=== PATIENT | female | born 1940 | race Caucasian/White ===

== ENCOUNTER 2017-02-17 16:18 | Emergency (ER) | payer MEDICARE, OTHER ==
--- NOTE | 2017-02-17 16:57 | EDM.PDOC ---
ED HPI NEURO - General Chief Complaint: Neurological Problem Stated Complaint: STROKE SYMPTOMS Time Seen by Provider: 02/17/17 16:18 Source of Information: Reports: Patient, Family (Daughter, [id number], son) , RN notes reviewed History Limitations: Reports: No limitations - History of Present Illness INITIAL COMMENTS - FREE TEXT/NARRATIVE: According to the patient's [id number], the patient was on the toilet at 15: 50. They have some sort of handles or grab bars, which the patient was holding onto in order not to fall. A family member helped the patient get up, however, she was having difficulty walking due to right lower extremity weakness. At 16: 12 she developed slurred speech. The patient's [id number] and daughter brought the patient immediately to the ED. The patient is right hand dominant. Initial VS 154/75 - 84 They relate that the patient underwent a AAA repair by (it appears) 2 endovascular grafts, per Dr. akins at [facility], approximately 8 weeks ago. The patient is not currently on a blood thinner. - Related Data Allergies/ADRs: Allergies Allergy/AdvReac Type Severity Reaction Status Date / Time No Known Allergies Allergy Verified 01/25/17 12:53 Home Meds: Home Meds Fluticasone/Salmeterol [Advair 250-50 Diskus] 1 each IH BID 01/05/17 [History] Levothyroxine 112 mcg PO DAILY 01/05/17 [History] Omeprazole 40 mg PO DAILY 01/05/17 [History] Tiotropium [Spiriva HandiHaler] 18 mcg INH BID 01/05/17 [History] Cetirizine [ZyrTEC] 10 mg PO DAILY 02/17/17 [History] Past Medical History Cardiovascular History: Reports: High cholesterol, Hypertension (untreated), Other (see below) (AAA) Respiratory History: Reports: COPD Gastrointestinal History: Reports: Other (see below) (Undiagnosed "stomach issues", including bloating) Genitourinary History: Reports: Urinary incontinence Musculoskeletal History: Reports: Arthritis Endocrine/Metabolic History: Reports: Hypothyroidism Oncologic (Cancer) History: Reports: Squamous cell carcinoma - Past Surgical History HEENT Surgical History: Reports: Tonsillectomy Cardiovascular Surgical History: Reports: AAA repair (2 endografts), Varicose GI Surgical History: Reports: Hernia repair/other Female Surgical History: Reports: Tubal ligation, Other (see below) (Bladder suspension) Social & Family History - Tobacco Use Smoking Status *Q: Former Smoker Years of Tobacco use: 50 Packs/Tins Daily: 1.5 Tobacco Use Comment: QUIT 11/19/16 - Caffeine Use Caffeine Use: Reports: None - Alcohol Use Alcohol Use History: Yes Alcohol Use Frequency: Socially - Recreational Drug Use Recreational Drug Use: No - Living Situation & Occupation Living situation: Reports: , alone Occupation: retired ED ROS GENERAL - Review of Systems Review Of Systems: See Below Constitutional: Reports: no symptoms HEENT: Reports: No symptoms Respiratory: Reports: No Symptoms Cardiovascular: Reports: No symptoms Endocrine: Reports: no symptoms GI/Abdominal: Reports: No symptoms : Reports: no symptoms Musculoskeletal: Reports: no symptoms Skin: Reports: no symptoms Neurological: Reports: No Symptoms Psychiatric: Reports: No symptoms Hematologic/Lymphatic: Reports: no symptoms Immunologic: Reports: no symptoms ED EXAM, NEURO - Physical Exam Exam: See Below Exam Limited By: No limitations General Appearance: alert, WD/WN, no apparent distress Eye Exam: bilateral eye: EOMI, normal inspection Ears: normal external exam, hearing grossly normal Nose: normal inspection, no blood Throat/Mouth: Normal inspection, Normal lips, Normal voice, No airway compromise Head Exam: atraumatic, normocephalic Neck: normal inspection, full range of motion Respiratory/Chest: no respiratory distress, lungs clear, normal breath sounds, no accessory muscle use, chest non-tender Cardiovascular: normal peripheral pulses, regular rate, rhythm, no edema, no gallop, no JVD, no murmur, no rub GI/Abdominal: normal bowel sounds, soft, non tender, no organomegaly, no distention, no abnormal bruit, no mass Neurological: alert, oriented x 3, other (Right facial droop, including inability to blow out right cheek. Forehead is not involved. Slurred speech, but no word finding difficulty or apparent receptive aphasia. Mild weakness of the right upper extremity and right lower extremity, compared to the left. NIH stroke scale score of 4.) Extremities: normal inspection, normal range of motion, non-tender, no pedal edema, normal capillary refill Psychiatric: normal affect Skin Exam: Warm, Dry, Intact, Normal color, No rash EKG INTERPRETATION EKG Date: 02/17/17 Time: 16:28 Rhythm: NSR Rate (beats/min): 73 [place]: normal P-wave: present QRS: normal ST-T: normal QT: normal Course - Vital Signs Last Recorded V/S: Last Vital Signs Temp 36.1 C 02/17/17 16:33 Pulse 69 02/17/17 17:44 Resp 17 02/17/17 17:44 BP 143/64 H 02/17/17 17:44 Pulse Ox 93 L 02/17/17 17:44 - Orders/Labs/Meds Orders: Active Orders 24 hr Category Date Time Status EKG Documentation Completion [RC] STAT Care 02/17/17 16:30 Active Ang Head [CT] Stat Exams 02/17/17 17:16 Taken CTA Neck W & W/O Contrast [Ang Neck] [CT] Stat Exams 02/17/17 17:16 Taken Chest 1V Frontal [CR] Stat Exams 02/17/17 16:30 Taken Head wo Cont [CT] Stat Exams 02/17/17 16:26 Taken Sodium Chloride 0.9% [Normal Saline] 1,000 ml Med 02/17/17 18:00 Active IV ASDIRECTED Sodium Chloride 0.9% [Normal Saline] 100 ml Med 02/17/17 17:30 Active IV ASDIRECTED Sodium Chloride 0.9% [Saline Flush] Med 02/17/17 17:23 Active 10 ml FLUSH ONETIME PRN Medication Orders Sodium Chloride (Normal Saline) 100 mls @ 65 mls/hr IV ASDIRECTED FANNIE Last Admin: 02/17/17 17:50 Dose: 65 mls/hr Sodium Chloride (Normal Saline) 1,000 mls @ 75 mls/hr IV ASDIRECTED FANNIE Sodium Chloride (Saline Flush) 10 ml FLUSH ONETIME PRN PRN Reason: IV FLUSH Last Admin: 02/17/17 17:50 Dose: 10 ml Labs: Laboratory Tests 02/17/17 02/17/17 02/17/17 Range/Units 16:20 16:20 16:20 WBC 10.46 H (3.98-10.04) K/mm3 RBC 4.47 (3.98-5.22) M/mm3 Hgb 14.0 (11.2-15.7) gm/L Hct 42.9 (34.1-44.9) % MCV 96.0 H (79.4-94.8) fl MCH 31.3 (25.6-32.2) pg MCHC 32.6 (32.2-35.5) g/dl RDW Std Deviation 47.4 H (36.4-46.3) fL Plt Count 259 (182-369) K/mm3 MPV 9.8 (9.4-12.3) fl Neutrophils % (Manual) 69 H (40-60) % Band Neutrophils % 0 (0-10) % Lymphocytes % (Manual) 15 L (20-40) % Atypical Lymphs % 5 % Monocytes % (Manual) 8 (2-10) % Eosinophils % (Manual) 1 (0.7-5.8) % Basophils % (Manual) 2 H (0.1-1.2) Platelet Estimate Adequate Plt Morphology Comment Normal RBC Morph Comment Normal PT 9.7 (8.0-13.0) SECONDS INR 0.90 APTT 29 (22-36) SECONDS Sodium 137 (136-145) mEq/L Potassium 3.8 (3.5-5.1) mEq/L Chloride 101 (98-107) mEq/L Carbon Dioxide 25 (21-32) mEq/L Anion Gap 14.8 (5-15) BUN 10 (7-18) mg/dL Creatinine 0.9 (0.55-1.02) mg/dL Est Cr Clr Drug Dosing TNP Estimated GFR (MDRD) > 60 (>60) mL/min BUN/Creatinine Ratio 11.1 L (14-18) Glucose 108 (83-115) mg/dL Calcium 9.0 (8.5-10.1) mg/dL Magnesium 1.9 (1.8-2.4) mg/dl Total Bilirubin 0.3 (0.2-1.0) mg/dL AST 14 L (15-37) U/L ALT 25 (14-59) U/L Alkaline Phosphatase 104 (46-116) U/L Troponin I < 0.017 (0.00-0.056) ng/mL Total Protein 7.3 (6.4-8.2) g/dl Albumin 2.8 L (3.4-5.0) g/dl Globulin 4.5 gm/dL Albumin/Globulin Ratio 0.6 L (1-2) Meds: Medications Generic Name Dose Route Start Last Admin Trade Name Freq PRN Reason Stop Dose Admin Sodium Chloride 100 mls @ 65 mls/hr 02/17/17 17:30 02/17/17 17:50 Normal Saline IV 65 mls/hr ASDIRECTED FANNIE Administration Sodium Chloride 1,000 mls @ 75 mls/hr 02/17/17 18:00 Normal Saline IV ASDIRECTED FANNIE Sodium Chloride 10 ml 02/17/17 17:23 02/17/17 17:50 Saline Flush FLUSH 10 ml ONETIME PRN Administration IV FLUSH Discontinued Medications Generic Name Dose Route Start Last Admin Trade Name Freq PRN Reason Stop Dose Admin Alteplase, Recombinant Confirm 02/17/17 17:07 02/17/17 17:27 Activase Administered 02/17/17 17:08 Not Given Dose 100 mg .ROUTE .STK-MED ONE Alteplase, Recombinant 69.3 mg 02/17/17 17:18 02/17/17 17:15 Activase IV 02/17/17 17:19 69.3 mg .INFUSION STA Administration Iopamidol 100 ml 02/17/17 17:23 02/17/17 17:50 Isovue-370 (76%) IVPUSH 02/17/17 17:24 100 ml ONETIME ONE Administration - Radiology Interpretation Free Text/Narrative:: CT of the head without contrast is read by virtual radiology as: - No acute abnormality of the brain. MRI of the brain may be obtained if clinical concern for acute intracranial abnormality persists, and the brain has no contraindications. - Mild atrophy of the brain parenchyma. - Sinus disease as described in the report with findings suspicious for acute on chronic sinusitis. - Incidental/non-acute findings are described above. Portable chest radiograph does not appear to demonstrate any acute abnormalities. Cardiac silhouette is within normal limits. No pulmonary vascular congestion. No pleural effusions. No focal infiltrate. No pneumothorax. Hyperinflation and bilateral diaphragmatic flattening, consistent with COPD, noted. Formal read per the Radiologist pending. - Re-Assessments/Exams Free Text/Narrative Re-Assessment/Exam: 02/17/17 17:[address] Cheng, Neurologist at [facility], at 16:38. Provided the patient's platelets and blood glucose are within acceptable range, there don't appear to be any contraindications to any thrombolytic. The dosing would need to be based on actual weight, not conjecture. He wants the patient to be aware that there is a 7% chance that the thrombolytic could result in a bleed, resulting in worse neurologic outcome, or even . The above then discussed at length with the patient, her daughter, daughter-in- law, and son. Provided the platelets and blood glucose are within acceptable range, she would like to proceed with the thrombolytic. Platelets returned as 259K and blood glucose 108. Patient again confirmed that she wants to proceed with the thrombolytic. Consent signed. Dr. Cheng then called back at 17:06 to check on the patient. He is recommending a stat CT angiogram of the head and neck, both intracranial and extracranial. If the patient has a vascular abnormality, he absolutely needs the patient to be transferred to their facility. The patient does not have a vascular abnormality, we could entertain the idea of keeping the patient here in the ICU for 24 hours, no aspirin or heparin, normal saline at 75 mL per hour , and no eating until after a swallow evaluation, however, he is recommending that we transfer the patient to their facility no matter what the CT angiogram results are. This was discussed with the patient and her family, who are agreeable to transfer to [place]. 02/17/17 17:[address] Cheng's hardware sales assistant at 17:32. They have discussed the case with the Neurosurgeon Dr. Pressley, who would like the patient to be transferred no matter what the CTA results. 02/17/17 17:45 Since receiving the TNKase, the patient has no complaints. She still has difficulty blowing out her right cheek, however, her right upper and right lower extremity strength appears to have returned to normal. 02/17/17 18:26 Flight is here. The patient's right facial droop, including the ability to puff out her cheeks, has resolved. Departure - Departure Time of Disposition: 18:07 Disposition: DC/Tfer to Acute Hospital 02 Condition: fair Clinical Impression: Acute ischemic stroke Referrals: Daksha Quijano [Primary Care Provider] - - My Orders Last 24 Hours: My Active Orders 02/17/17 16:26 Head wo Cont [CT] Stat 02/17/17 16:30 EKG Documentation Completion [RC] STAT Chest 1V Frontal [CR] Stat 02/17/17 17:16 Ang Head [CT] Stat CTA Neck W & W/O Contrast [Ang Neck] [CT] Stat 02/17/17 17:23 Sodium Chloride 0.9% [Saline Flush] 10 ml FLUSH ONETIME PRN 02/17/17 17:30 Sodium Chloride 0.9% [Normal Saline] 100 ml IV ASDIRECTED 02/17/17 18:00 Sodium Chloride 0.9% [Normal Saline] 1,000 ml IV ASDIRECTED - Assessment/Plan Last 24 Hours: My Active Orders 02/17/17 16:26 Head wo Cont [CT] Stat 02/17/17 16:30 EKG Documentation Completion [RC] STAT Chest 1V Frontal [CR] Stat 02/17/17 17:16 Ang Head [CT] Stat CTA Neck W & W/O Contrast [Ang Neck] [CT] Stat 02/17/17 17:23 Sodium Chloride 0.9% [Saline Flush] 10 ml FLUSH ONETIME PRN 02/17/17 17:30 Sodium Chloride 0.9% [Normal Saline] 100 ml IV ASDIRECTED 02/17/17 18:00 Sodium Chloride 0.9% [Normal Saline] 1,000 ml IV ASDIRECTED
[2017-02-17] MEDS ORDERED: Iopamidol 755 Mg/ML 100 ML Bottle IVPUSH ONE (17:23)
[2017-02-17] MEDS ORDERED: Sodium Chloride 0.9% 10 ML Syringe FLUSH PRN (17:23)
[2017-02-17] MEDS ORDERED: Sodium Chloride 0.9% 100 ML IV SCH (17:30)
[2017-02-17] MEDS ORDERED: Sodium Chloride 0.9% 1,000 ML IV SCH (18:00)
[2017-02-17 18:31] VITALS: BP 137/80
--- NOTE | 2017-02-20 08:34 | CT ---
CT angiogram of neck Technique: Multiple axial sections were obtained to the neck. Intravenous contrast was utilized. Study performed as a CT angiogram protocol. Multiple MIP images were obtained. Findings: Atherosclerotic plaque noted within the thoracic aorta. Scattered atherosclerotic plaque noted within the carotid arteries. Mild stenosis noted within the proximal right internal carotid artery below 50%. No other focal areas of stenosis seen within the carotid arteries or vertebral arteries. Left vertebral artery is dominant over the right which is incidental. Small calcified nodule noted within the left thyroid gland which is felt to be incidental. Upper lung shows diffuse emphysematous change. Impression: 1. Less than 50% stenosis within the proximal right internal carotid artery. 2. Other incidental findings as described above. Diagnostic code #3 I agree with preliminary report issued by [facility] (preliminary report dictated on 02/17/17, 7:55 PM Central Time)
--- NOTE | 2017-02-20 08:34 | CT ---
CT angiogram of brain Technique: Multiple axial sections through the brain were obtained. Intravenous contrast given as a CT angiogram protocol. Multiple MIP images were obtained. Findings: Fluid is seen within both maxillary sinuses raising the possibility of sinusitis. Mild mucosal thickening noted within the ethmoid sinuses. Dominant left vertebral artery as compared to the right side which is felt to be normal in limits. Atherosclerotic change noted within the carotid siphon. No significant areas of stenosis noted within the intracranial arteries. No discrete aneurysm identified within the intracranial arteries. Impression: 1. Mild atheromatous change. 2. No focal areas of stenosis are seen intracranially. No discrete aneurysm is seen. 3. Possible sinusitis (air fluid levels within both maxillary sinuses). Diagnostic code #3 I agree with preliminary report issued by [facility] (preliminary report dictated on 02/17/17, 7:44 PM Central Time)
--- NOTE | 2017-02-20 08:34 | CT ---
Head CT Technique: Multiple axial sections through the brain were obtained. Intravenous contrast was not utilized. Comparison: No previous study. Findings: Ventricles along with basal cisterns and sulci over the convexities are mildly prominent. Slightly prominent cisterna magna is seen which is incidental. Minimal diminished density noted within the periventricular white matter which is compatible with small vessel ischemic demyelination change. No other abnormal parenchymal densities are seen. No evidence of intracranial hemorrhage. No midline shift or mass effect is seen. Air-fluid levels noted within the maxillary sinuses with mild mucosal thickening noted within the ethmoid sinuses. Impression: 1. Findings suspicious for sinusitis. 2. Mild senescent change. Nothing acute is identified on noncontrast head CT study. Diagnostic code #3
--- NOTE | 2017-02-20 08:34 | CR ---
Chest: Portable view of the chest was obtained. Comparison: Previous chest x-ray of 10/18/16. Heart size and mediastinum are normal. Lungs are clear but hyperinflated. Bony structures are grossly intact. Impression: 1. Emphysematous change. Nothing acute is seen on portable chest x-ray. Diagnostic code #2
== END 2017-02-17 18:30 ==
LOC: JD.ED 16:18
DX: I63.9 Cerebral infarction, unspecified (principal); E78.00 Pure hypercholesterolemia, unspecified; I10 Essential (primary) hypertension; J44.9 Chronic obstructive pulmonary disease, unspecified; M19.90 Unspecified osteoarthritis, unspecified site; E03.9 Hypothyroidism, unspecified; Z98.890 Other specified postprocedural states; Z79.899 Other long term (current) drug therapy; Z98.51 Tubal ligation status; Z87.891 Personal history of nicotine dependence
CPT/HCPCS: 36415; 70450; 70496; 70498; 71010; 80053; 83735; 84484; 85025; 85610; 85730; 93005; 96365; 96375; 99285; J2997; J7030; J7050; Q9967; 99213

== ENCOUNTER 2017-04-01 01:24 | Inpatient (IN) | payer MEDICARE, OTHER ==
[2017-04-01] MEDS ORDERED: Ondansetron 4 MG/2 ML SDV IVPUSH ONE (01:48)
[2017-04-01] MEDS ORDERED: Pantoprazole 40 MG Vial IVPUSH ONE (01:48)
[2017-04-01] MEDS ORDERED: Sodium Chloride 0.9% 1,000 ML IV SCH (02:00)
--- NOTE | 2017-04-01 02:26 | EDM.PDOC ---
ED HPI GI/ABDOMINAL - General Chief Complaint: Gastrointestinal Problem Stated Complaint: VOMITING BLOOD Time Seen by Provider: 04/01/17 01:38 Source of Information: Reports: Patient, Family History Limitations: Reports: No limitations - History of Present Illness INITIAL COMMENTS - FREE TEXT/NARRATIVE: Is a 77-year-old female. Onset with nausea and vomiting this morning. She says when she started vomiting she started having tightness and a fullness in the right upper quadrant. She has a history of GERD and which she started vomiting initially she said she was vomiting up a lot of acid. Then it seemed like the vomitus turned into some dark blood and then she called her son who lives next door and when he came to the house she was vomiting up some coffee grounds. She comes to the ER because of the nausea and vomiting and concern about vomiting blood. She apparently has a history of having done this once before and she came to the ER was given a shot and sent home. She does take Prilosec on a daily basis for her GERD. She denies any history of gallbladder problems. She's had no recent upper respiratory infections but she does have allergies to bother her at times. She's not having any significant abdominal pain at this time and her nausea has eased up considerably. She does have a history of AAA that was recently repaired. - Related Data Allergies/ADRs: Allergies Allergy/AdvReac Type Severity Reaction Status Date / Time No Known Allergies Allergy Verified 02/28/17 13:00 Home Meds: Home Meds Fluticasone/Salmeterol [Advair 250-50 Diskus] 1 each IH BID 01/05/17 [History] Levothyroxine 112 mcg PO DAILY 01/05/17 [History] Omeprazole 40 mg PO DAILY 01/05/17 [History] Tiotropium [Spiriva HandiHaler] 18 mcg INH BID 01/05/17 [History] Aspirin [[place] Aspirin] 81 mg PO DAILY 02/28/17 [History] Pravastatin [Pravachol] 20 mg PO DAILY 02/28/17 [History] Past Medical History Cardiovascular History: Reports: High cholesterol, Hypertension (untreated), Other (see below) (AAA) Respiratory History: Reports: COPD Gastrointestinal History: Reports: Other (see below) (Undiagnosed "stomach issues", including bloating) Genitourinary History: Reports: Urinary incontinence Musculoskeletal History: Reports: Arthritis Endocrine/Metabolic History: Reports: Hypothyroidism Oncologic (Cancer) History: Reports: Squamous cell carcinoma - Past Surgical History HEENT Surgical History: Reports: Tonsillectomy Cardiovascular Surgical History: Reports: AAA repair (2 endografts), Varicose GI Surgical History: Reports: Hernia repair/other Female Surgical History: Reports: Tubal ligation, Other (see below) (Bladder suspension) Social & Family History - Tobacco Use Smoking Status *Q: Former Smoker Years of Tobacco use: 50 Packs/Tins Daily: 1.5 - Caffeine Use Caffeine Use: Reports: None - Recreational Drug Use Recreational Drug Use: No - Living Situation & Occupation Living situation: Reports: , alone Occupation: retired ED ROS GENERAL - Review of Systems Review Of Systems: See Below Constitutional: Denies: fever, chills HEENT: Reports: No symptoms Respiratory: Denies: Shortness of Breath, Cough Cardiovascular: Denies: Chest pain GI/Abdominal: Reports: Abdominal pain, Hematemesis, Nausea, Vomiting : Reports: no symptoms Musculoskeletal: Reports: no symptoms Skin: Reports: no symptoms Neurological: Reports: No Symptoms Psychiatric: Reports: Anxiety Hematologic/Lymphatic: Reports: no symptoms ED EXAM, GI/ABD - Physical Exam Exam: See Below Exam Limited By: No limitations General Appearance: alert, WD/WN, mild distress Ears: normal external exam Nose: normal inspection Throat/Mouth: Normal inspection, Normal oropharynx, No airway compromise Head: normocephalic Neck: supple Respiratory/Chest: no respiratory distress, lungs clear, normal breath sounds Cardiovascular: regular rate, rhythm, no murmur GI/Abdominal: soft, other (She is tender in the epigastric and right upper quadrant and a suggestion of a positive Turpin sign, left upper quadrant and lower abdomen are nontender on palpation, bowel sounds are hypoactive, there is no distention there is no guarding there is no rebound noted) Back Exam: full range of motion Extremities: normal inspection Neurological: alert, oriented Psychiatric: anxious Skin Exam: Warm, Dry Course - Vital Signs Last Recorded V/S: Last Vital Signs Temp 97.6 F 04/01/17 01:28 Pulse 72 04/01/17 01:28 Resp 16 04/01/17 01:28 BP 184/109 H 04/01/17 01:28 Pulse Ox 96 04/01/17 01:28 - Orders/Labs/Meds Orders: Active Orders 24 hr Category Date Time Status Abdomen Ltd [US] Stat Exams 04/01/17 01:49 Taken Sodium Chloride 0.9% [Normal Saline] 1,000 ml Med 04/01/17 02:00 Active IV ASDIRECTED Medication Orders Sodium Chloride (Normal Saline) 1,000 mls @ 500 mls/hr IV ASDIRECTED FANNIE Last Admin: 04/01/17 02:04 Dose: 500 mls/hr Labs: Laboratory Tests 04/01/17 04/01/17 Range/Units 01:50 01:50 WBC 8.97 (3.98-10.04) K/mm3 RBC 4.37 (3.98-5.22) M/mm3 Hgb 13.7 (11.2-15.7) gm/L Hct 41.8 (34.1-44.9) % MCV 95.7 H (79.4-94.8) fl MCH 31.4 (25.6-32.2) pg MCHC 32.8 (32.2-35.5) g/dl RDW Std Deviation 47.2 H (36.4-46.3) fL Plt Count 284 (182-369) K/mm3 MPV 9.3 L (9.4-12.3) fl Neut % (Auto) 44.1 (34.0-71.1) % Lymph % (Auto) 43.4 (19.3-51.7) % [place] % (Auto) 8.4 (4.7-12.5) % Eos % (Auto) 3.6 (0.7-5.8) Baso % (Auto) 0.3 (0.1-1.2) % Neut # (Auto) 3.96 (1.56-6.13) K/mm3 Lymph # (Auto) 3.89 H (1.18-3.74) K/mm3 [place] # (Auto) 0.75 H (0.24-0.36) K/mm3 Eos # (Auto) 0.32 (0.04-0.36) K/mm3 Baso # (Auto) 0.03 (0.01-0.08) K/mm3 Sodium 138 (136-145) mEq/L Potassium 3.4 L (3.5-5.1) mEq/L Chloride 102 (98-107) mEq/L Carbon Dioxide 28 (21-32) mEq/L Anion Gap 11.4 (5-15) BUN 19 H (7-18) mg/dL Creatinine 0.9 (0.55-1.02) mg/dL Est Cr Clr Drug Dosing 52.81 mL/min Estimated GFR (MDRD) > 60 (>60) mL/min BUN/Creatinine Ratio 21.1 H (14-18) Glucose 148 H (83-115) mg/dL Calcium 9.2 (8.5-10.1) mg/dL Total Bilirubin 0.3 (0.2-1.0) mg/dL AST 18 (15-37) U/L ALT 19 (14-59) U/L Alkaline Phosphatase 90 (46-116) U/L Total Protein 7.0 (6.4-8.2) g/dl Albumin 2.7 L (3.4-5.0) g/dl Globulin 4.3 gm/dL Albumin/Globulin Ratio 0.6 L (1-2) Lipase 136 (73-393) U/L Meds: Medications Generic Name Dose Route Start Last Admin Trade Name Freq PRN Reason Stop Dose Admin Sodium Chloride 1,000 mls @ 500 mls/hr 04/01/17 02:00 04/01/17 02:04 Normal Saline IV 500 mls/hr ASDIRECTED FANNIE Administration Discontinued Medications Generic Name Dose Route Start Last Admin Trade Name Freq PRN Reason Stop Dose Admin Ondansetron HCl 4 mg 04/01/17 01:48 04/01/17 02:04 Zofran IVPUSH 04/01/17 01:49 4 mg ONETIME ONE Administration Pantoprazole Sodium 40 mg 04/01/17 01:48 04/01/17 02:04 Protonix Iv IVPUSH 04/01/17 01:49 40 mg ONETIME ONE Administration - Radiology Interpretation Free Text/Narrative:: Ultrasound shows gall stones the largest being 1.4 cm in size with a positive Turpin's sign suspected mild gallbladder wall thickening and edema suggesting early acute cholecystitis - Re-Assessments/Exams Free Text/Narrative Re-Assessment/Exam: 04/01/17 02:53 We Gastroccult her coffee grounds and they were positive for blood 04/01/17 03:44 I spoke to the patient and her son regarding the test results and the ultrasound the port. Concern that she is vomiting up blood and has an upper GI bleed plus she has the complication of gallstones and possible developing acute cholecystitis. I spoke to Dr. Turcios regarding the patient and he felt like she needs to be observed in the hospital and he will consult on her in the morning. I did speak to Dr. Polo she is willing to put her in the hospital for evaluation and treatment. The patient is willing to stay in the hospital. Departure - Departure Time of Disposition: 03:46 Disposition: Admitted As Inpatient 66 Condition: fair Clinical Impression: Upper GI bleed, Cholelithiasis Additional Instructions: I spoke to Dr. Polo and she'll admit the patient for further evaluation and treatment, Dr. Turcios is agreed to consult in the a.m. regarding the patient ED Communication - ED Communication Date/Time Date: 04/01/17 Time Called: 03:49 - Discussed Case With (1) Person/s Notified (1): Yelena Polo (She will admit the patient) - My Orders Last 24 Hours: My Active Orders 04/01/17 01:49 Abdomen Ltd [US] Stat 04/01/17 02:00 Sodium Chloride 0.9% [Normal Saline] 1,000 ml IV ASDIRECTED - Assessment/Plan Last 24 Hours: My Active Orders 04/01/17 01:49 Abdomen Ltd [US] Stat 04/01/17 02:00 Sodium Chloride 0.9% [Normal Saline] 1,000 ml IV ASDIRECTED
[2017-04-01] MEDS ORDERED: Ondansetron 4 MG/2 ML SDV IVPUSH PRN (06:48)
[2017-04-01] MEDS ORDERED: cefOXitin 1 GM in Premix Bag 1 BAG IV ONE (07:00)
--- NOTE | 2017-04-01 08:38 | PCM.CONSN ---
- General Info Date of Service: 04/01/17 - Patient Data Vitals - most recent: Last Vital Signs Temp 97.5 F 04/01/17 07:48 Pulse 56 L 04/01/17 07:48 Resp 16 04/01/17 07:48 BP 146/70 H 04/01/17 07:48 Pulse Ox 94 L 04/01/17 07:48 Weight - most recent: 76.702 kg Lab Results last 24 hrs: Laboratory Results - last 24 hr 04/01/17 04/01/17 Range/Units 07:25 07:25 WBC 7.51 (3.98-10.04) K/mm3 RBC 4.25 (3.98-5.22) M/mm3 Hgb 13.1 (11.2-15.7) gm/L Hct 40.9 (34.1-44.9) % MCV 96.2 H (79.4-94.8) fl MCH 30.8 (25.6-32.2) pg MCHC 32.0 L (32.2-35.5) g/dl RDW Std Deviation 47.6 H (36.4-46.3) fL Plt Count 280 (182-369) K/mm3 MPV 9.3 L (9.4-12.3) fl Neut % (Auto) 42.1 (34.0-71.1) % Lymph % (Auto) 46.5 (19.3-51.7) % [place] % (Auto) 7.3 (4.7-12.5) % Eos % (Auto) 3.5 (0.7-5.8) Baso % (Auto) 0.5 (0.1-1.2) % Neut # (Auto) 3.16 (1.56-6.13) K/mm3 Lymph # (Auto) 3.49 (1.18-3.74) K/mm3 [place] # (Auto) 0.55 H (0.24-0.36) K/mm3 Eos # (Auto) 0.26 (0.04-0.36) K/mm3 Baso # (Auto) 0.04 (0.01-0.08) K/mm3 Sodium 145 (136-145) mEq/L Potassium 4.1 (3.5-5.1) mEq/L Chloride 110 H (98-107) mEq/L Carbon Dioxide 29 (21-32) mEq/L Anion Gap 10.1 (5-15) BUN 15 (7-18) mg/dL Creatinine 0.8 (0.55-1.02) mg/dL Est Cr Clr Drug Dosing 57.27 mL/min Estimated GFR (MDRD) > 60 (>60) mL/min BUN/Creatinine Ratio 18.8 H (14-18) Glucose 95 (83-115) mg/dL Calcium 8.6 (8.5-10.1) mg/dL Total Bilirubin 0.2 (0.2-1.0) mg/dL AST 14 L (15-37) U/L ALT 18 (14-59) U/L Alkaline Phosphatase 76 (46-116) U/L Total Protein 6.2 L (6.4-8.2) g/dl Albumin 2.3 L (3.4-5.0) g/dl Globulin 3.9 gm/dL Albumin/Globulin Ratio 0.6 L (1-2) Lipase 74 (73-393) U/L Med Orders - Current: Current Medications Sodium Chloride (Normal Saline) 1,000 mls @ 500 mls/hr IV ASDIRECTED [facility] Last Admin: 04/01/17 02:04 Dose: 500 mls/hr Sodium Chloride (Normal Saline) 1,000 mls @ 100 mls/hr IV ASDIRECTED [facility] Ondansetron HCl (Zofran) 4 mg IVPUSH Q6H PRN PRN Reason: Nausea Discontinued Medications Cefoxitin Sodium 1 gm/ Premix 50 mls @ 100 mls/hr IV ONETIME ONE Stop: 04/01/17 07:29 Last Admin: 04/01/17 07:35 Dose: 100 mls/hr Ondansetron HCl (Zofran) 4 mg IVPUSH ONETIME ONE Stop: 04/01/17 01:49 Last Admin: 04/01/17 02:04 Dose: 4 mg Pantoprazole Sodium (Protonix Iv) 40 mg IVPUSH ONETIME ONE Stop: 04/01/17 01:49 Last Admin: 04/01/17 02:04 Dose: 40 mg Consult PN Assessment/Plan Procedures: Procedures ASSAY OF LIPASE (11/14/16) ASSAY OF MAGNESIUM (02/17/17) ASSAY OF SERUM POTASSIUM (08/15/16) ASSAY OF TROPONIN QUANT (02/17/17) CHEST X-RAY 1 VIEW FRONTAL (02/17/17) CHEST X-RAY 2VW FRONTAL&LATL (10/18/16) COMPLETE CBC W/AUTO DIFF WBC (02/17/17) COMPREHEN METABOLIC PANEL (02/17/17) CT ABD & PELV W/CONTRAST (11/14/16) CT ANGIO ABDOM W/O & W/DYE (07/27/16) CT ANGIOGRAPHY HEAD (02/17/17) CT ANGIOGRAPHY NECK (02/17/17) CT HEAD/BRAIN W/O DYE (02/17/17) ELECTROCARDIOGRAM TRACING (02/17/17) EMERGENCY DEPT VISIT (02/17/17) EMERGENCY DEPT VISIT (11/14/16) HELICOBACTER PYLORI ANTIBODY (07/27/16) HYDRATE IV INFUSION ADD-ON (11/14/16) LIPID PANEL (08/04/16) OFFICE/OUTPATIENT VISIT EST (02/28/17) PROTHROMBIN TIME (02/17/17) ROUTINE VENIPUNCTURE (02/17/17) THER/PROPH/DIAG INJ IV PUSH (11/14/16) THER/PROPH/DIAG IV INF INIT (02/17/17) THROMBOPLASTIN TIME PARTIAL (02/17/17) TX/PRO/DX INJ NEW DRUG ADDON (02/17/17) URINALYSIS AUTO W/SCOPE (11/14/16) Problem List Initiated/Reviewed/Updated: Yes My Orders last 24 hours: My Active Orders 04/01/17 Breakfast NPO Now [Nothing per Oral Now Diet] [DIET] Plan: surgical consults dictated CIELO
--- NOTE | 2017-04-01 09:16 | PCM.HP ---
H&P History of Present Illness - General Date of Service: 04/01/17 Source of Information: Patient, Provider History Limitations: Reports: No limitations - History of Present Illness Initial Comments - Free Text/Narative: 77 year old female with a complaint of abdominal pain associated with nausea and vomiting. Denies any fever or chills, will be seen by general surgery for evaluation of cholelithiasis. She has been seen this morning and has been assessed by the hospitalist service for a planned procedure on 04/03/17. The patient denies a cardiac history, is a former smoker who stopped late last year. She has a 76 pack year history of tobacco. Apparently she participated in pulmonary rehab which was arranged by her arch support maker. Her last episode of bronchitis occurred roughly six weeks ago requiring steroids. She is able to perform activities consistent with 4 METS. The patient may proceed to surgery as scheduled on Monday, however will need to resume ASA for her endovascular AAA repair as soon as possible. Onset of Symptoms: Reports: sudden Symptom Onset Date: 03/31/17 Duration of Symptoms: Reports: Hour(s):, Getting worse Location: Reports: abdomen Quality: Reports: Same as previous episode Severity: moderate Improves with: Reports: Medication Worsens with: Reports: None Associated Symptoms: Reports: loss of appetite, weakness - Related Data Allergies/Adverse Reactions: Allergies Allergy/AdvReac Type Severity Reaction Status Date / Time No Known Allergies Allergy Verified 02/28/17 13:00 Home Medications: Home Meds Fluticasone/Salmeterol [Advair 250-50 Diskus] 1 each IH BID 01/05/17 [History] Levothyroxine 112 mcg PO DAILY 01/05/17 [History] Omeprazole 40 mg PO DAILY 01/05/17 [History] Tiotropium [Spiriva HandiHaler] 18 mcg INH BID 01/05/17 [History] Pravastatin [Pravachol] 20 mg PO DAILY 02/28/17 [History] Aspirin [[place] Aspirin] 81 mg PO DAILY #0 04/02/17 [Rx] Ondansetron [Zofran] 4 mg PO Q8H PRN #15 vial 04/02/17 [Rx] Past Medical History Cardiovascular History: Reports: High cholesterol, Hypertension Other Cardiovascular History: aaa Respiratory History: Reports: COPD Gastrointestinal History: Reports: Other (see below) Other Gastrointestinal History: 04/01/17 diagnosed with cholelithiasis and gallstones. bladder has been lifted. Genitourinary History: Reports: Urinary incontinence Musculoskeletal History: Reports: Arthritis Endocrine/Metabolic History: Reports: Hypothyroidism Oncologic (Cancer) History: Reports: Squamous cell carcinoma Dermatologic History: Reports: Other (see below) Other Dermatologic History: brown dry flaking skin to forearms that is thin - Past Surgical History HEENT Surgical History: Reports: Tonsillectomy Cardiovascular Surgical History: Reports: AAA repair, Varicose Respiratory Surgical History: Reports: None GI Surgical History: Reports: Hernia repair/other Female Surgical History: Reports: Tubal ligation Endocrine Surgical History: Reports: None Musculoskeletal Surgical History: Reports: None Dermatological Surgical History: Reports: None Social & Family History - Family History Family Medical History: Noncontributory - Tobacco Use Smoking Status *Q: Never Smoker Years of Tobacco use: 50 Packs/Tins Daily: 1.5 Used Tobacco, but Quit: Yes Month Tobacco Last Used: 11/19/16 Second Hand Smoke Exposure: No - Caffeine Use Caffeine Use: Reports: None - Recreational Drug Use Recreational Drug Use: No - Living Situation & Occupation Living situation: Reports: , alone Occupation: retired H&P Review of Systems - Review of Systems: Review Of Systems: See Below General: Reports: weakness HEENT: Reports: no symptoms Pulmonary: Reports: No Symptoms Cardiovascular: Reports: no symptoms Gastrointestinal: Reports: Abdominal pain, Decreased appetite Genitourinary: Reports: no symptoms Musculoskeletal: Reports: no symptoms Skin: Reports: no symptoms Psychiatric: Reports: no symptoms Neurological: Reports: No Symptoms Hematologic/Lymphatic: Reports: no symptoms Immunologic: Reports: no symptoms Exam - Exam Exam: See Below - Vital Signs Vital Signs: Last Vital Signs Temp 36.4 C 04/01/17 07:48 Pulse 56 L 04/01/17 07:48 Resp 16 04/01/17 07:48 BP 146/70 H 04/01/17 07:48 Pulse Ox 94 L 04/01/17 07:48 Weight: 76.702 kg - Exam Quality Assessment: DVT prophylaxis General: alert, oriented, cooperative HEENT: Conjunctiva clear, EACs clear, EOMI, Nares patent, Normal nasal septum, Pupils equal, Pupils reactive Neck: supple, trachea midline Lungs: Normal respiratory effort, Wheezing Cardiovascular: regular rate, regular rhythm Abdomen: normal bowel sounds, soft (Female) Exam: Deferred Rectal (Female) Exam: Deferred Back Exam: normal inspection Extremities: normal inspection Skin: warm Neurological: cranial nerves intact Neuro Extensive - Mental Status: alert, oriented x3, normal mood/affect, normal cognition, memory intact - Patient Data Lab Results last 24 hrs: Laboratory Results - last 24 hr 04/01/17 04/01/17 Range/Units 07:25 07:25 WBC 7.51 (3.98-10.04) K/mm3 RBC 4.25 (3.98-5.22) M/mm3 Hgb 13.1 (11.2-15.7) gm/L Hct 40.9 (34.1-44.9) % MCV 96.2 H (79.4-94.8) fl MCH 30.8 (25.6-32.2) pg MCHC 32.0 L (32.2-35.5) g/dl RDW Std Deviation 47.6 H (36.4-46.3) fL Plt Count 280 (182-369) K/mm3 MPV 9.3 L (9.4-12.3) fl Neut % (Auto) 42.1 (34.0-71.1) % Lymph % (Auto) 46.5 (19.3-51.7) % [place] % (Auto) 7.3 (4.7-12.5) % Eos % (Auto) 3.5 (0.7-5.8) Baso % (Auto) 0.5 (0.1-1.2) % Neut # (Auto) 3.16 (1.56-6.13) K/mm3 Lymph # (Auto) 3.49 (1.18-3.74) K/mm3 [place] # (Auto) 0.55 H (0.24-0.36) K/mm3 Eos # (Auto) 0.26 (0.04-0.36) K/mm3 Baso # (Auto) 0.04 (0.01-0.08) K/mm3 Sodium 145 (136-145) mEq/L Potassium 4.1 (3.5-5.1) mEq/L Chloride 110 H (98-107) mEq/L Carbon Dioxide 29 (21-32) mEq/L Anion Gap 10.1 (5-15) BUN 15 (7-18) mg/dL Creatinine 0.8 (0.55-1.02) mg/dL Est Cr Clr Drug Dosing 57.27 mL/min Estimated GFR (MDRD) > 60 (>60) mL/min BUN/Creatinine Ratio 18.8 H (14-18) Glucose 95 (83-115) mg/dL Calcium 8.6 (8.5-10.1) mg/dL Total Bilirubin 0.2 (0.2-1.0) mg/dL AST 14 L (15-37) U/L ALT 18 (14-59) U/L Alkaline Phosphatase 76 (46-116) U/L Total Protein 6.2 L (6.4-8.2) g/dl Albumin 2.3 L (3.4-5.0) g/dl Globulin 3.9 gm/dL Albumin/Globulin Ratio 0.6 L (1-2) Lipase 74 (73-393) U/L Result Diagrams: 04/02/17 04:33 04/02/17 04:33 *Q Meaningful Use (ADM) - VTE *Q VTE Criteria *Q: - Stroke *Q Stroke Criteria *Q: - AMI *Q AMI Criteria *Q: - Problem List (1) PVD (peripheral vascular disease) SNOMED Code(s): 319202023 ICD Code: I73.9 - PERIPHERAL VASCULAR DISEASE, UNSPECIFIED Status: Chronic (2) COPD (chronic obstructive pulmonary disease) SNOMED Code(s): 36191468 ICD Code: J44.9 - CHRONIC OBSTRUCTIVE PULMONARY DISEASE, UNSPECIFIED Status : Chronic (3) Cholelithiasis SNOMED Code(s): 173120737 ICD Code: K80.20 - CALCULUS OF GALLBLADDER W/O CHOLECYSTITIS W/O OBSTRUCTION Status: Acute Priority: High (4) GERD (gastroesophageal reflux disease) SNOMED Code(s): 254426765 ICD Code: K21.9 - GASTRO-ESOPHAGEAL REFLUX DISEASE WITHOUT ESOPHAGITIS Status: Acute Problem List Initiated/Reviewed/Updated: Yes Orders Last 24hrs: Active Orders 24 hr Category Date Time Status Admission Status [Patient Status] [ADT] Routine ADT 04/01/17 06:06 Active Notify Provider Consults [RC] ASDIRECTED Care 04/01/17 06:52 Active Up With Assistance [RC] ASDIRECTED Care 04/01/17 06:47 Active Up ad [place] [RC] ASDIRECTED Care 04/01/17 06:47 Active Consult to Physician [CONS] Routine Cons 04/01/17 06:49 Active NPO Now [Nothing per Oral Now Diet] [DIET] Diet 04/01/17 Breakfast Active Soft Diet [DIET] Diet 04/01/17 Lunch Active Ondansetron [Zofran] Med 04/01/17 06:48 Active 4 mg IVPUSH Q6H PRN Sodium Chloride 0.9% [Normal Saline] 1,000 ml Med 04/01/17 06:15 Active IV ASDIRECTED Code Status [Resuscitation Status] Routine Resus Stat 04/01/17 06:46 Ordered Medication Orders Sodium Chloride (Normal Saline) 1,000 mls @ 500 mls/hr IV ASDIRECTED [facility] Last Admin: 04/01/17 02:04 Dose: 500 mls/hr Sodium Chloride (Normal Saline) 1,000 mls @ 100 mls/hr IV ASDIRECTED [facility] Ondansetron HCl (Zofran) 4 mg IVPUSH Q6H PRN PRN Reason: Nausea Assessment/Plan Comment:: Impression: Cholelithiasis Lipid status is unknown, query lack of statin? Chronic HTN Hypothyroidism PVD Plan: GB removal Pain meds IVF ATB DVT/GI prophylaxis DC pending progression of diet.
[2017-04-01] MEDS: cefOXitin 1 GM in Premix Bag 1 BAG IV SCH ×2 (14:21→23:47)
[2017-04-01] MEDS: Sodium Chloride 0.9% 1,000 ML IV SCH (14:27)
[2017-04-01] MEDS: Fluticasone/Salmeterol 250-50 MCG Inhalation Powder 14/Diskus INH SCH (20:20)
[2017-04-01] MEDS: Tiotropium Inhaler 18 MCG Inhalation Powder Cap Kit of 5 INH SCH (20:20)
[2017-04-01] MEDS ORDERED: Simvastatin 10 MG Tab PO SCH (21:00)
[2017-04-01] MEDS: Pantoprazole 40 MG Vial IVPUSH SCH (21:12)
[2017-04-02] MEDS: Sodium Chloride 0.9% 1,000 ML IV SCH (00:45)
[2017-04-02] MEDS: cefOXitin 1 GM in Premix Bag 1 BAG IV SCH (06:33)
[2017-04-02] MEDS: Pantoprazole 40 MG Vial IVPUSH SCH (08:15)
[2017-04-02] MEDS: Fluticasone/Salmeterol 250-50 MCG Inhalation Powder 14/Diskus INH SCH (08:28)
[2017-04-02] MEDS: Tiotropium Inhaler 18 MCG Inhalation Powder Cap Kit of 5 INH SCH (08:28)
[2017-04-02] MEDS ORDERED: Non-Formulary Medication 1 Each (Omeprazole [Omeprazole] 40 MG) PO SCH (09:00)
[2017-04-02] MEDS ORDERED: Levothyroxine 112 MCG Tab PO SCH (09:00)
[2017-04-02] MEDS ORDERED: Aspirin 81 MG Tab.Chew PO SCH (09:00)
--- NOTE | 2017-04-02 09:57 | PCM.DCSUM1 ---
Discharge Summary - Hospital Course HPI Initial Comments: 77 year old female with abdominal pain associated with nausea and vomiting, has documented gallstones. The GB will be removed as an outpatient on 04/03/17. The patient was admitted as observation for symptom control, prior to DC, she had been seen by Dr Archer. His office will notify the patient of her planned procedure. She was watched for 24 hours, symptom management was provided. The patient was able to eat a heart healthy meal before DC without difficulty. WILL REQUIRE STATIN THERAPY. Primary DX Cholelithiasis Abdominal pain Condition Stable Diet As tolerated New Meds Zofran 4mg Q 8 H prn nausea/vomiting Will need statin therapy started, see recent Lipid Panel. Procedure Planned Cholecystectomy Follow up TBD after surgery - Discharge Data Discharge Date: 04/02/17 Discharge Disposition: Home, Self-Care 01 Condition: Good - Discharge Diagnosis/Problem(s) (1) PVD (peripheral vascular disease) SNOMED Code(s): 994062356 ICD Code: I73.9 - PERIPHERAL VASCULAR DISEASE, UNSPECIFIED Status: Chronic (2) COPD (chronic obstructive pulmonary disease) SNOMED Code(s): 74460480 ICD Code: J44.9 - CHRONIC OBSTRUCTIVE PULMONARY DISEASE, UNSPECIFIED Status : Chronic (3) Cholelithiasis SNOMED Code(s): 945794601 ICD Code: K80.20 - CALCULUS OF GALLBLADDER W/O CHOLECYSTITIS W/O OBSTRUCTION Status: Acute Priority: High (4) GERD (gastroesophageal reflux disease) SNOMED Code(s): 090837100 ICD Code: K21.9 - GASTRO-ESOPHAGEAL REFLUX DISEASE WITHOUT ESOPHAGITIS Status: Acute - Patient Summary/Data Consults: Consultations 04/01/17 06:49 Consult to Physician [CONS] Routine - Discharge Plan Prescriptions/Med Rec: Ondansetron [Zofran] 4 mg PO Q8H PRN #15 vial PRN Reason: Nausea/Vomiting Home Medications: Home Meds Fluticasone/Salmeterol [Advair 250-50 Diskus] 1 each IH BID 01/05/17 [History] Levothyroxine 112 mcg PO DAILY 01/05/17 [History] Omeprazole 40 mg PO DAILY 01/05/17 [History] Tiotropium [Spiriva HandiHaler] 18 mcg INH BID 01/05/17 [History] Pravastatin [Pravachol] 20 mg PO DAILY 02/28/17 [History] Aspirin [[place] Aspirin] 81 mg PO DAILY #0 04/02/17 [Rx] Ondansetron [Zofran] 4 mg PO Q8H PRN #15 vial 04/02/17 [Rx] Patient Handouts: Gastrointestinal Bleeding, Chronic Obstructive Pulmonary Disease, [id number] Referrals: Daksha Quijano [Physician] - (If you do not have a primary provider, please call the clinic ([phone]) here at the hospital to make a follow-up appointment with .) - General Info Date of Service: 04/01/17 - Patient Data Vitals - Most Recent: Last Vital Signs Temp 37.2 C 04/02/17 04:20 Pulse 59 L 04/02/17 04:20 Resp 18 04/02/17 04:20 BP 131/66 04/02/17 04:20 Pulse Ox 92 L 04/02/17 08:28 Weight - Most Recent: 77.111 kg I&O - Last 24 hours: Intake & Output 04/01/17 04/02/17 04/02/17 22:59 06:59 14:59 Intake Total 2410 3074 Output Total 500 1150 Balance 1910 1924 Lab Results - Last 24 hrs: Laboratory Results - last 24 hr 04/02/17 04/02/17 Range/Units 04:33 04:33 WBC 7.49 (3.98-10.04) K/mm3 RBC 3.90 L (3.98-5.22) M/mm3 Hgb 12.1 (11.2-15.7) gm/L Hct 38.2 (34.1-44.9) % MCV 97.9 H (79.4-94.8) fl MCH 31.0 (25.6-32.2) pg MCHC 31.7 L (32.2-35.5) g/dl RDW Std Deviation 48.5 H (36.4-46.3) fL Plt Count 264 (182-369) K/mm3 MPV 10.0 (9.4-12.3) fl Neut % (Auto) 46.4 (34.0-71.1) % Lymph % (Auto) 41.5 (19.3-51.7) % [place] % (Auto) 7.7 (4.7-12.5) % Eos % (Auto) 3.6 (0.7-5.8) Baso % (Auto) 0.7 (0.1-1.2) % Neut # (Auto) 3.47 (1.56-6.13) K/mm3 Lymph # (Auto) 3.11 (1.18-3.74) K/mm3 [place] # (Auto) 0.58 H (0.24-0.36) K/mm3 Eos # (Auto) 0.27 (0.04-0.36) K/mm3 Baso # (Auto) 0.05 (0.01-0.08) K/mm3 Sodium 142 (136-145) mEq/L Potassium 3.9 (3.5-5.1) mEq/L Chloride 108 H (98-107) mEq/L Carbon Dioxide 27 (21-32) mEq/L Anion Gap 10.9 (5-15) BUN 8 (7-18) mg/dL Creatinine 0.8 (0.55-1.02) mg/dL Est Cr Clr Drug Dosing 57.27 mL/min Estimated GFR (MDRD) > 60 (>60) mL/min BUN/Creatinine Ratio 10.0 L (14-18) Glucose 101 (83-115) mg/dL Calcium 8.3 L (8.5-10.1) mg/dL Magnesium 2.0 (1.8-2.4) mg/dl Triglycerides 186 H (<150) mg/dL Cholesterol 230 H (<200) mg/dL LDL Cholesterol Direct 143 H* (<100) mg/dL HDL Cholesterol 56.0 (40-59) mg/dL Med Orders - Current: Current Medications Aspirin (Aspirin) 81 mg PO DAILY [facility] Last Admin: 04/02/17 08:15 Dose: 81 mg Sodium Chloride (Normal Saline) 1,000 mls @ 100 mls/hr IV ASDIRECTED [facility] Last Admin: 04/02/17 00:45 Dose: 100 mls/hr Cefoxitin Sodium 1 gm/ Premix 50 mls @ 100 mls/hr IV Q8H [facility] Last Admin: 04/02/17 06:33 Dose: 100 mls/hr Levothyroxine Sodium (Levothyroxine) 112 mcg PO DAILY [facility] Last Admin: 04/02/17 08:15 Dose: 112 mcg Ondansetron HCl (Zofran) 4 mg IVPUSH Q6H PRN PRN Reason: Nausea Pantoprazole Sodium (Protonix Iv) 40 mg IVPUSH Q12H [facility] Last Admin: 04/02/17 08:15 Dose: 40 mg Fluticasone/Salmeterol (Advair Diskus 250-50) 1 puff INH BID [facility] Last Admin: 04/02/17 08:28 Dose: 1 puff Simvastatin (Zocor) 10 mg PO BEDTIME [facility] Last Admin: 04/01/17 21:12 Dose: 10 mg Tiotropium [place] (Spiriva Handihaler) 18 mcg INH DAILY [facility] Discontinued Medications Sodium Chloride (Normal Saline) 1,000 mls @ 125 mls/hr IV ASDIRECTED [facility] Last Admin: 04/01/17 02:04 Dose: 500 mls/hr Cefoxitin Sodium 1 gm/ Premix 50 mls @ 100 mls/hr IV ONETIME ONE Stop: 04/01/17 07:29 Last Admin: 04/01/17 07:35 Dose: 100 mls/hr Non-Formulary Medication (Omeprazole [Omeprazole]) 40 mg PO DAILY [facility] Ondansetron HCl (Zofran) 4 mg IVPUSH ONETIME ONE Stop: 04/01/17 01:49 Last Admin: 04/01/17 02:04 Dose: 4 mg Pantoprazole Sodium (Protonix Iv) 40 mg IVPUSH ONETIME ONE Stop: 04/01/17 01:49 Last Admin: 04/01/17 02:04 Dose: 40 mg Tiotropium [place] (Spiriva Handihaler) 18 mcg INH BID [facility] Last Admin: 04/02/17 08:28 Dose: 1 puff *Q Meaningful Use (DIS) - VTE *Q VTE Criteria *Q: - Stroke *Q Stroke Criteria *Q: - AMI *Q AMI Criteria *Q:
[2017-04-02 11:20] VITALS: BP 142/95
[2017-04-03] MEDS ORDERED: Tiotropium Inhaler 18 MCG Inhalation Powder Cap Kit of 5 INH SCH (09:00)
--- NOTE | 2017-04-03 10:34 | US ---
Limited abdominal ultrasound: Multiple real-time images were obtained of the upper right abdomen. Liver shows no focal parenchymal abnormality. Multiple gallstones seen within the gallbladder. Very slight gallbladder wall edema is noted. Common bile duct at the upper limits of normal at 8 mm. Minimal prominence of the collecting system of the right kidney is seen which is likely incidental. Right kidney is otherwise unremarkable. Pancreas is poorly seen due to bowel gas. Impression: 1. Gallstones. Minimal gallbladder wall edema. Common bile duct measures at the upper limits of normal at 8 mm. 2. Slightly prominent collecting system of the right kidney which is likely incidental unless patient has symptoms of right ureteral obstruction. 3. Nonvisualized pancreas. Diagnostic code #3 I agree with preliminary report issued by [email or web address] (report finalized on 04/01/17, 4:14 AM Central Time)
--- NOTE | 2017-05-08 08:44 | CONS ---
CONSULTING PHYSICIAN: Kartik Archer MD DATE OF CONSULTATION: 04/01/2017 ADDENDUM: This consultation was done on Monday on 04/01/2017 but posted by the hospital on 04/03/2017. The work was actually done on 04/01/2017. MMODAL /[id number]
== END 2017-04-02 12:05 | disposition home or self-care (01) | DRG 446 ==
LOC: JD.ED 01:24 → JD.MS 04:10
PROVIDERS: ADMIT Internal Medicine Cardiovascular Disease; ATTEND Internal Medicine Cardiovascular Disease
DX: K92.0 Hematemesis (principal); K80.20 Calculus of gallbladder without cholecystitis without obstruction; K21.9 Gastro-esophageal reflux disease without esophagitis; I73.9 Peripheral vascular disease, unspecified; J44.9 Chronic obstructive pulmonary disease, unspecified; I10 Essential (primary) hypertension; E03.9 Hypothyroidism, unspecified; M19.90 Unspecified osteoarthritis, unspecified site; E78.00 Pure hypercholesterolemia, unspecified; R32 Unspecified urinary incontinence; Z87.891 Personal history of nicotine dependence; Z79.899 Other long term (current) drug therapy
CPT/HCPCS: 36415; 76705; 80053; 83690; 85025; 96361; 96374; 96375; 99285; C9113; J2405; J7040; 80048; 80061; 83735; 94640; 94664; A9270; A9270-GY; J0694

== ENCOUNTER 2017-04-03 08:29 | Day surgery (SDC) | payer MEDICARE, OTHER ==
--- NOTE | 2017-04-03 07:41 | CONS ---
CONSULTING PHYSICIAN: Kartik Archer MD DATE OF CONSULTATION: 04/01/2017 HISTORY OF PRESENT ILLNESS: This is a 77-year-old female, who came into the emergency room by 1 o'clock this morning with nausea and vomiting. It started after eating eggs for breakfast, had a little fullness and pressure-like symptom in the right upper quadrant. She then began to vomit, this turn into coffee-ground material, and then came into the emergency room. She vomited in emergency room, no coffee-ground material however. Ultrasound was done showing stones in the gallbladder. The patient states that she has had about 4 episodes similar to this over the last 6 months. This was felt to be due to her reflux. She has heartburn, which is only incompletely managed with Prilosec. She has had an upper GI endoscopy done years ago. The patient, at the moment, is feeling comfortable, has no complaint of abdominal pain, nausea or vomiting is quite stable. PAST MEDICAL HISTORY: Elevated cholesterol, hypertension, history of abdominal aortic aneurysm treated with endografts earlier this year. She has gastroesophageal reflux. She is a chronic smoker, which she stopped recently in October, and has COPD. She has some urinary incontinence, treated hypothyroidism. Other operations consist of bladder suspension and hernia repair. SOCIAL HISTORY: The patient is a former smoker, does drink alcohol, Captshelly Gallegos. FAMILY HISTORY: No real heart disease in the family. She has a large family and does not remember all the elements of their disease. REVIEW OF SYSTEMS: No chest pain, shortness of breath, cough, hoarseness, wheezing, fainting, weakness, numbness, convulsions. She does have some nausea and vomiting, indigestion, which has resolved. She does have some shortness of breath when walking upstairs. MEDICATIONS: Per medication reconciliation form. Other medical problems that of history of small strokes last month. PHYSICAL EXAMINATION: VITAL SIGNS: Temperature 97, pulse 72, respirations 16, blood pressure 184/109. HEENT: Eyes, sclerae white. Extraocular muscle motion normal. Oral cavity, healthy mucous membrane with mouth and tongue. NECK: Supple. No nodes. No thyromegaly. Trachea midline. LUNGS: Decreased breath sounds throughout. HEART: Tones distant, but regular. ABDOMEN: Shows mild tenderness and guarding in right upper quadrant. EXTREMITIES: Upper and lower extremities, no angulation or deformities. NEUROLOGIC: No sensorineural deficit appreciated. Cranial nerves 3 through 12 intact. SKIN: Nice and warm. PSYCHIATRIC: Normal. ASSESSMENT: 1. Cholelithiasis, quite symptomatic. 2. History of chronic obstructive pulmonary disease, due to smoking. 3. History of coronary artery disease. 4. Hypertension. 5. History of abdominal aortic repair with some endografts just recently. 6. History of small strokes. PLAN: Plan is to discuss the procedure laparoscopic cholecystectomy, intraoperative cholangiogram with the patient risks and complications drawing out the procedure, and its risks for the patient and the family. We will ask Dr. Polo to preoperatively see, so we can clear her for surgery on Monday. JUNAID /[id number]
[~2017-04-03 08:29] MED LIST: Dexamethasone 4 MG/ML 5 ML MDV ONE; Lactated Ringers 1,000 ML IV SCH; Lidocaine 1% 4 ML ONE; Lidocaine 1%/Sod Bicarbonate in NS 8.4% 1 ML Syringe IV PRN; Ondansetron 4 MG/2 ML SDV ONE; Propofol 200 MG/20 ML SDV ONE; Sodium Chloride 0.9% 10 ML Syringe FLUSH PRN; fentaNYL 250 MCG/5 ML SDV ONE
--- NOTE | 2017-04-03 09:05 | PCM.PREANE ---
Preanesthetic Assessment - Anesthesia/Transfusion/Family Hx Anesthesia History: Prior Anesthesia Without Reaction Type of Anesthesia Reaction: Excessive Somnolence Family History of Anesthesia Reaction: No Transfusion History: No Prior Transfusion(s) - Review of Systems General: No Symptoms Pulmonary: Shortness of Breath (pt has COPD), Other Cardiovascular: Other (HLD- controlled with medications ) Gastrointestinal: Other (GERD) Neurological: Other (TIA 1 month ago- carotids evaluated and "not blocked enough to do surgery" is what she was told ) Other: Reports: Easy Bruising, Thyroid Problems (hypothyroidism controlled with medication ) - Physical Assessment NPO Status Date: 04/03/17 NPO Status Time: 00:00 Pulse: 56 O2 Sat by Pulse Oximetry: 95 Respiratory Rate: 16 Blood Pressure: 142/72 Temperature: 36.3 C Height: 1.7 m Weight: 77.111 kg ASA Class: 3 Mental Status: Alert & Oriented x3 Airway Class: Mallampati = 1 Dentition: Reports: Dentures (upper ) Thyro-Mental Finger Breadths: 3 Mouth Opening Finger Breadths: 3 ROM/Head Extension: Limited/Partial (due to dizziness) Lungs: Clear to auscultation, Normal respiratory effort, Decreased breath sounds Cardiovascular: Regular Rate, Regular Rhythm - Lab Values: 04-02-17 HGB 12.1 WBC 7.49 K+ 3.9 NA 142 Creatinine 0.8 Glucose 101 - Imaging/EKG Impressions: 02-17-17 SR 73 Prob LAE No ischemic changes - Allergies Allergies/Adverse Reactions: Allergies Allergy/AdvReac Type Severity Reaction Status Date / Time No Known Allergies Allergy Verified 02/28/17 13:00 - Blood Blood Available: No Product(s) Available: None - Anesthesia Plan Pre-Op Medication Ordered: None - Acknowledgements Anesthesia Type Planned: General Anesthesia Pt an Appropriate Candidate for the Planned Anesthesia: Yes Alternatives and Risks of Anesthesia Discussed w Pt/Guardian: Yes Pt/Guardian Understands and Agrees with Anesthesia Plan: Yes PreAnesthesia Questionnaire Cardiovascular History: Reports: Aneurysm (AAA repaired in 12-13), High cholesterol, Hypertension, Other (see below) Respiratory History: Reports: COPD Gastrointestinal History: Reports: GERD, Other (see below) Other Gastrointestinal History: 04/01/17 diagnosed with cholelithiasis and gallstones. bladder has been lifted. Genitourinary History: Reports: Urinary incontinence Musculoskeletal History: Reports: Arthritis Endocrine/Metabolic History: Reports: Hypothyroidism Oncologic (Cancer) History: Reports: Squamous cell carcinoma Dermatologic History: Reports: Other (see below) Other Dermatologic History: brown dry flaking skin to forearms that is thin - Past Surgical History HEENT Surgical History: Reports: Tonsillectomy Cardiovascular Surgical History: Reports: AAA repair, Varicose Respiratory Surgical History: Reports: None GI Surgical History: Reports: Hernia repair/other Female Surgical History: Reports: Tubal ligation Endocrine Surgical History: Reports: None Musculoskeletal Surgical History: Reports: None Dermatological Surgical History: Reports: None - SUBSTANCE USE Smoking Status *Q: Former Smoker (quit last , 76 pack year hx) Tobacco Use Within Last Twelve Months: No Second Hand Smoke Exposure: Yes Days Per Week of Alcohol Use: 7 Number of Drinks Per Day: 2 Total Drinks Per Week: 14 Date of Last Drink: 04/02/17 Time of Last Drink: 21:00 Recreational Drug Use History: No - HOME MEDS Home Medications: Home Meds Fluticasone/Salmeterol [Advair 250-50 Diskus] 1 each IH BID 01/05/17 [History] Levothyroxine 112 mcg PO DAILY 01/05/17 [History] Omeprazole 40 mg PO DAILY 01/05/17 [History] Tiotropium [Spiriva HandiHaler] 18 mcg INH BID 01/05/17 [History] Pravastatin [Pravachol] 20 mg PO DAILY 02/28/17 [History] Aspirin [[place] Aspirin] 81 mg PO DAILY #0 04/02/17 [Rx] Ondansetron [Zofran] 4 mg PO Q8H PRN #15 vial 04/02/17 [Rx] - CURRENT (IN HOUSE) MEDS Current Meds: Current Medications Albuterol (Proventil Neb Soln) 2.5 mg NEB ONETIME PRN PRN Reason: copd Stop: 04/03/17 18:00 Lactated Ringer's (Ringers, Lactated) 1,000 mls @ 125 mls/hr IV ASDIRECTED FANNIE Stop: 04/03/17 23:00 Lidocaine/Sodium Bicarbonate (Buffered Lidocaine 1% In Ns 8.4%) 0.25 ml IV ONETIME PRN PRN Reason: Prior to IV Start Stop: 04/03/17 18:00 Sodium Chloride (Saline Flush) 10 ml FLUSH ASDIRECTED PRN PRN Reason: Keep Vein Open Stop: 04/03/17 18:00 Discontinued Medications Dexamethasone (Dexamethasone) Confirm Administered Dose 20 mg .ROUTE .STK-MED ONE Stop: 04/03/17 08:12 Fentanyl (Sublimaze) Confirm Administered Dose 250 mcg .ROUTE .STK-MED ONE Stop: 04/03/17 08:11 Lidocaine HCl (Xylocaine-Mpf 1%) Confirm Administered Dose 4 mls @ as directed .ROUTE .STK-MED ONE Stop: 04/03/17 08:12 Ondansetron HCl (Zofran) Confirm Administered Dose 4 mg .ROUTE .STK-MED ONE Stop: 04/03/17 08:12 Propofol (Diprivan 20 Ml) Confirm Administered Dose 200 mg .ROUTE .STK-MED ONE Stop: 04/03/17 08:10
[2017-04-03] MEDS ORDERED: Iopamidol 612 MG/ML 50 ML SDV ONE (09:06)
[2017-04-03] MEDS ORDERED: Sodium Chloride 0.9% 50 ML SDV ONE (09:06)
[2017-04-03] MEDS ORDERED: Bupivacaine 0.5% 30 ML SDV ONE (09:06)
[2017-04-03] MEDS: Albuterol 0.083% 2.5 MG/3 ML Neb Soln NEB PRN ×2 (09:26→12:36)
[2017-04-03] MEDS ORDERED: Rocuronium 50 MG/5 ML Vial ONE (09:27)
[2017-04-03] MEDS ORDERED: ePHEDrine/Normal Saline 25 MG/5 ML Syringe ONE (09:27)
[2017-04-03] MEDS ORDERED: Lidocaine 1% 2 ML ONE (09:27)
[2017-04-03] MEDS ORDERED: HYDROmorphone 1 MG/ML Syringe ONE (09:28)
[2017-04-03] MEDS ORDERED: Lactated Ringers 1,000 ML ONE (09:29)
[2017-04-03] MEDS ORDERED: Ampicillin/Sulbactam Na 3 GM in Sodium Chloride 0.9% 100 ML IV ONE (09:45)
[2017-04-03] MEDS ORDERED: Phenylephrine 1 MG in Sodium Chloride 0.9% 10 ML IV SCH (10:45)
[2017-04-03] MEDS ORDERED: ePHEDrine 50 MG/ML SDV IVPUSH PRN (10:45)
[2017-04-03] MEDS ORDERED: Albuterol 0.083% 2.5 MG/3 ML Neb Soln NEB PRN (10:45)
[2017-04-03] MEDS ORDERED: Ondansetron 4 MG/2 ML SDV IVPUSH PRN (10:45)
[2017-04-03] MEDS ORDERED: Neostigmine Methylsulfate 10 MG/10 ML MDV ONE (11:06)
--- NOTE | 2017-04-03 11:23 | CR ---
Operative cholangiogram Technique: Multiple fluoroscopic spot views were obtained during operative cholangiogram exam. Filling defect is identified within the distal CBD presumably due to CBD calculus. No contrast is seen to extend into the duodenum. CHD and CBD are dilated. No additional filling defects are seen. Impression: 1. Findings which are felt compatible with calculus within the distal CBD causing obstruction and proximal biliary duct dilatation. Diagnostic code #3
[2017-04-03] MEDS ORDERED: fentaNYL 100 MCG/2 ML SDV IVPUSH PRN (11:45)
[2017-04-03] MEDS ORDERED: HYDROmorphone 0.5 MG/0.5 ML Syringe IVPUSH PRN (11:45)
[2017-04-03] MEDS ORDERED: Labetalol 100 MG/20 ML MDV ONE (11:52)
--- NOTE | 2017-04-03 12:05 | PCM.POSTAN ---
POST ANESTHESIA ASSESSMENT - MENTAL STATUS Mental Status: alert - VITAL SIGNS Pulse Rate: 63 SaO2: 100 Resp Rate: 9 Blood Pressure: 128/63 Temperature: 36.4 C - RESPIRATORY Respiratory Status: respiratory rate WNL, airway patent, O2 saturation stable, supplemental oxygen - CARDIOVASCULAR CV Status: pulse rate WNL, blood pressure stable - GASTROINTESTINAL GI Status: no symptoms - POST OP HYDRATION Hydration Status: adequate & stable
--- NOTE | 2017-04-03 12:06 | PCM.OPNOTE ---
- General Post-Op/Procedure Note Date of Surgery/Procedure: 04/03/17 Operative Procedure(s): lap norm with ioc Pre Op Diagnosis: chlelithiasis Post-Op Diagnosis: Same and choledochalithiasis Primary Surgeon: Kartik Archer EBL in mLs: 10 Complications: puncture wound to liver treated with surgacil Condition: Good
--- NOTE | 2017-04-03 12:18 | PCM48HPAN ---
Post Anesthesia Note - EVALUATION WITHIN 48HRS OF ANESTHETIC Vital Signs in Normal Range: Yes Patient Participated in Evaluation: Yes Respiratory Function Stable: Yes Airway Patent: Yes Cardiovascular Function Stable: Yes Hydration Status Stable: Yes Pain Control Satisfactory: Yes Nausea and Vomiting Control Satisfactory: Yes Mental Status Recovered: Yes - COMMENTS/OBSERVATIONS Free Text/Narrative:: Patient resting quietly, eyes closed, no c/o noted at this time.
[2017-04-03] MEDS ORDERED: Acetaminophen/HYDROcodone 325-5 MG Tab PO ONE (13:30)
[2017-04-03 15:24] VITALS: BP 118/65
--- NOTE | 2017-04-04 08:55 | OR ---
DATE OF OPERATION: 04/03/2017 SURGEON: Kartik Archer MD PREOPERATIVE DIAGNOSIS: Cholelithiasis, cholecystitis. POSTOPERATIVE DIAGNOSIS: Cholelithiasis, cholecystitis. OPERATION PERFORMED: Laparoscopic cholecystectomy, intraoperative cholangiogram. FINDINGS: Adhesions of omentum on the fundus of the gallbladder, small mulberry-type stones in the gallbladder. Common duct x-ray showed dilated duct with stones in the distal common duct without any flow into the duodenum. ESTIMATED BLOOD LOSS: About 10 mL. COMPLICATIONS: Small puncture wound to the undersurface of the liver caused by retraction of the liver treated with pressure and Surgicel. DESCRIPTION OF PROCEDURE: The patient was taken to the operating room, placed in a supine position, connected to monitoring equipment, given general anesthetic and intubated. SCDs were placed. Antibiotics were given. The abdomen was then prepped with DuraPrep draped off in a sterile fashion. An incision was made just above the umbilicus and carried down by sharp dissection to the fascia. Using a 5-mm Opti port, abdominal cavity was entered. Pneumoperitoneum was established and a 5-mm 30-degree camera was inserted, abdominal cavity scanned showing gallbladder in the right upper quadrant with adhesions. A 5 to 10-mm trocar placed in the epigastric position, and a 5-mm trocar was placed in right upper quadrant, right lateral quadrant. Fundus of gallbladder retracted in a cephalad position and placed in reverse Trendelenburg, with that tilted to the left. The omentum was then taken off the fundus of gallbladder with electrocautery and Diamond's pouch was dissected out. This was grasped and retracted caudally and Calot's triangle dissected out showing cystic duct, Diamond pouch, and secondary to the cystic duct dissected out and cystic artery. Clips were placed on the cystic artery proximal and distal and a clip was placed on the cystic duct. Cystic duct was opened and milked and no stones contained within. The cholangiocatheter was then placed and secured with a clip and a cholangiogram using a C-arm with contrast material diluted with equal parts of saline was then performed showing the above findings. The cystic duct clip was placed in the cystic duct. It was cut and 0 PDS Endoloop was placed on the cystic duct and secured. Cystic artery was cut and the gallbladder was then dissected from its attachments to the liver and placed in an Endobag and removed from the abdominal cavity and sent to pathology. Camera and pneumoperitoneum were established. The liver edge was lifted up and the area irrigated and at this time, a small puncture wound caused by the retractor what was incurred and this was treated with application of Surgicel to cease bleeding about 10 mL of the estimated blood loss. This was watched and no further oozing was noted. This completed the intraabdominal portion of the procedure. Pneumoperitoneum and ports were removed. The subumbilical and the skin of each port closed with interrupted subdermal 4-0 Dexon suture. Steri-Strips and sterile dressing placed. The patient tolerated the procedure and sent to recovery room in a stable condition. ANESTHESIA: MMODAL /[id number]
== END 2017-04-03 16:10 | disposition home or self-care (01) ==
LOC: JD.SDS 08:29
PROVIDERS: ATTEND Surgery
PROC: 0FT44ZZ Resection of Gallbladder, Percutaneous Endoscopic Approach (ICD-10-PCS; principal; 2017-04-03)
PROC: BF12YZZ Fluoroscopy of Gallbladder using Other Contrast (ICD-10-PCS; 2017-04-03)
DX: K80.10 Calculus of gallbladder with chronic cholecystitis without obstruction (principal); I10 Essential (primary) hypertension; E78.00 Pure hypercholesterolemia, unspecified; K21.9 Gastro-esophageal reflux disease without esophagitis; J44.9 Chronic obstructive pulmonary disease, unspecified; I25.10 Atherosclerotic heart disease of native coronary artery without angina pectoris; M19.90 Unspecified osteoarthritis, unspecified site; E03.9 Hypothyroidism, unspecified; Z87.891 Personal history of nicotine dependence; Z85.828 Personal history of other malignant neoplasm of skin; Z98.51 Tubal ligation status; Z98.890 Other specified postprocedural states; Z79.899 Other long term (current) drug therapy; Z79.82 Long term (current) use of aspirin
CPT/HCPCS: 47563; 76000; 88304; 94640; 94664; A9270; J0295; J1100; J1170; J2405; J2710; J3010; J7030; J7050; J7120; Q9967; 00790; J2704

== ENCOUNTER 2017-04-28 10:15 | Emergency (ER) | payer MEDICARE, OTHER ==
[2017-04-28] MEDS ORDERED: Sodium Chloride 0.9% 10 ML Syringe FLUSH PRN (10:20)
[2017-04-28] MEDS ORDERED: Sodium Chloride 0.9% 1,000 ML IV SCH (10:30)
[2017-04-28 12:39] VITALS: BP 135/92
--- NOTE | 2017-04-28 13:38 | EDM.PDOC ---
ED HPI GENERAL MEDICAL PROBLEM - General Chief Complaint: Neurological Problem Stated Complaint: [facility] Time Seen by Provider: 04/28/17 10:19 Source of Information: Reports: Patient, EMS, Family History Limitations: Reports: No Limitations - History of Present Illness INITIAL COMMENTS - FREE TEXT/NARRATIVE: The patient presents with sudden onset of dizziness. This all started this morning when she got up. When she would sit up or try to stand, she would get dizzy like she was off balance. She has a slight headache to the frontal region. She had some blurred vision with it but that is better. She has no chest pain or shortness of breath. She had some nausea but no vomiting. She has no abdominal pain. She has history of AAA repari with grafs and recently a stroke in January. She has no numbness or weakness with this. Onset: Sudden Duration: Minutes: Severity: Moderate Improves with: Reports: Immobilization Worsens with: Reports: Movement Context: Reports: Activity Associated Symptoms: Reports: Nausea/Vomiting. Denies: Chest Pain, Cough, Fever /Chills, Shortness of Breath Treatments COAT FITTER: Reports: IV/IO Headache Pain Score (Numeric/FACES): 5 - Related Data Allergies Allergy/AdvReac Type Severity Reaction Status Date / Time No Known Allergies Allergy Verified 02/28/17 13:00 Home Meds: Home Meds Fluticasone/Salmeterol [Advair 250-50 Diskus] 1 each IH BID 01/05/17 [History] Levothyroxine 112 mcg PO DAILY 01/05/17 [History] Omeprazole 40 mg PO DAILY 01/05/17 [History] Tiotropium [Spiriva HandiHaler] 18 mcg INH BID 01/05/17 [History] Pravastatin [Pravachol] 20 mg PO DAILY 02/28/17 [History] Aspirin [[place] Aspirin] 81 mg PO DAILY #0 04/02/17 [Rx] Ondansetron [Zofran] 4 mg PO Q8H PRN #15 vial 04/02/17 [Rx] Meclizine [Antivert] 25 mg PO Q6H PRN #20 tablet 04/28/17 [Rx] Past Medical History Cardiovascular History: Reports: Aneurysm, High Cholesterol, Hypertension, Other (See Below) Other Cardiovascular History: aaa Respiratory History: Reports: COPD Gastrointestinal History: Reports: GERD, Other (See Below) Other Gastrointestinal History: 04/01/17 diagnosed with cholelithiasis and gallstones. bladder has been lifted. Genitourinary History: Reports: Urinary Incontinence Musculoskeletal History: Reports: Arthritis Endocrine/Metabolic History: Reports: Hypothyroidism Oncologic (Cancer) History: Reports: Squamous Cell Carcinoma Dermatologic History: Reports: Other (See Below) Other Dermatologic History: brown dry flaking skin to forearms that is thin - Past Surgical History HEENT Surgical History: Reports: Tonsillectomy Respiratory Surgical History: Reports: None GI Surgical History: Reports: Hernia Repair/Other Female Surgical History: Reports: Tubal Ligation Endocrine Surgical History: Reports: None Musculoskeletal Surgical History: Reports: None Social & Family History - Family History Family Medical History: Noncontributory - Tobacco Use Smoking Status *Q: Former Smoker Years of Tobacco use: 50 Packs/Tins Daily: 1.5 Used Tobacco, but Quit: No Month Tobacco Last Used: 11/19/16 Second Hand Smoke Exposure: Yes - Caffeine Use Caffeine Use: Reports: None - Alcohol Use Days Per Week of Alcohol Use: 7 Number of Drinks Per Day: 2 Total Drinks Per Week: 14 - Recreational Drug Use Recreational Drug Use: No Drug Use in Last 12 Months: No - Living Situation & Occupation Living situation: Reports: , Alone Occupation: Retired ED ROS GENERAL - Review of Systems Review Of Systems: See Below Constitutional: Reports: No Symptoms HEENT: Reports: No Symptoms Respiratory: Reports: No Symptoms Cardiovascular: Reports: No Symptoms Endocrine: Reports: No Symptoms GI/Abdominal: Reports: Abdominal Pain, Nausea. Denies: Vomiting Musculoskeletal: Reports: No Symptoms Skin: Reports: No Symptoms ED EXAM, NEURO - Physical Exam Exam: See Below Exam Limited By: No Limitations General Appearance: Alert, No Apparent Distress Eye Exam: Bilateral Eye: EOMI Ears: Normal External Exam Nose: Normal Inspection Head Exam: Atraumatic, Normocephalic Neck: Normal Inspection Respiratory/Chest: No Respiratory Distress, Lungs Clear, Normal Breath Sounds Cardiovascular: Regular Rate, Rhythm, No Edema, No Murmur GI/Abdominal: Soft, Non-Tender, No Organomegaly, No Mass, Other Neurological: Alert, No Motor/Sensory Deficits, Oriented x 3 Back Exam: Normal Inspection Extremities: Normal Inspection EKG INTERPRETATION EKG Date: 04/28/17 Time: 10:26 Rhythm: other (sinus bradycardia) Rate (beats/min): 55 [place]: normal P-wave: present QRS: normal ST-T: normal QT: normal Course - Vital Signs Last Recorded V/S: Last Vital Signs Temp 97.9 F 04/28/17 10:15 Pulse 62 04/28/17 10:15 Resp 16 04/28/17 10:15 BP 135/92 H 04/28/17 10:15 Pulse Ox 94 L 04/28/17 10:15 - Orders/Labs/Meds Orders: Active Orders 24 hr Category Date Time Status Cardiac Monitoring [RC] . DIRECTED Care 04/28/17 10:20 Active EKG Documentation Completion [RC] STAT Care 04/28/17 10:20 Active Oxygen Therapy [RC] PRN Care 04/28/17 10:20 Active Peripheral IV Care [RC] . DIRECTED Care 04/28/17 10:20 Active Head wo Cont [CT] Stat Exams 04/28/17 10:21 Taken Sodium Chloride 0.9% [Normal Saline] 1,000 ml Med 04/28/17 10:30 Active IV ASDIRECTED Sodium Chloride 0.9% [Saline Flush] Med 04/28/17 10:20 Active 10 ml FLUSH ASDIRECTED PRN Peripheral IV Insertion Adult [OM.PC] Stat Oth 04/28/17 10:20 Ordered Medication Orders Sodium Chloride (Normal Saline) 1,000 mls @ 125 mls/hr IV ASDIRECTED FANNIE Last Admin: 04/28/17 11:00 Dose: 125 mls/hr Sodium Chloride (Saline Flush) 10 ml FLUSH ASDIRECTED PRN PRN Reason: Keep Vein Open Last Admin: 04/28/17 11:00 Dose: 10 ml Labs: Laboratory Tests 04/28/17 04/28/17 Range/Units 10:28 10:28 WBC 6.84 (3.98-10.04) K/mm3 RBC 4.51 (3.98-5.22) M/mm3 Hgb 13.9 (11.2-15.7) gm/L Hct 43.0 (34.1-44.9) % MCV 95.3 H (79.4-94.8) fl MCH 30.8 (25.6-32.2) pg MCHC 32.3 (32.2-35.5) g/dl RDW Std Deviation 47.2 H (36.4-46.3) fL Plt Count 284 (182-369) K/mm3 MPV 9.8 (9.4-12.3) fl Neut % (Auto) 48.4 (34.0-71.1) % Lymph % (Auto) 38.9 (19.3-51.7) % [place] % (Auto) 8.8 (4.7-12.5) % Eos % (Auto) 3.2 (0.7-5.8) Baso % (Auto) 0.6 (0.1-1.2) % Neut # (Auto) 3.31 (1.56-6.13) K/mm3 Lymph # (Auto) 2.66 (1.18-3.74) K/mm3 [place] # (Auto) 0.60 H (0.24-0.36) K/mm3 Eos # (Auto) 0.22 (0.04-0.36) K/mm3 Baso # (Auto) 0.04 (0.01-0.08) K/mm3 Sodium 139 (136-145) mEq/L Potassium 4.2 (3.5-5.1) mEq/L Chloride 104 (98-107) mEq/L Carbon Dioxide 27 (21-32) mEq/L Anion Gap 12.2 (5-15) BUN 14 (7-18) mg/dL Creatinine 0.8 (0.55-1.02) mg/dL Est Cr Clr Drug Dosing TNP Estimated GFR (MDRD) > 60 (>60) mL/min BUN/Creatinine Ratio 17.5 (14-18) Glucose 121 H (83-115) mg/dL Calcium 9.3 (8.5-10.1) mg/dL Total Bilirubin 0.3 (0.2-1.0) mg/dL AST 18 (15-37) U/L ALT 20 (14-59) U/L Alkaline Phosphatase 106 (46-116) U/L Troponin I < 0.017 (0.00-0.056) ng/mL Total Protein 7.0 (6.4-8.2) g/dl Albumin 2.6 L (3.4-5.0) g/dl Globulin 4.4 gm/dL Albumin/Globulin Ratio 0.6 L (1-2) Meds: Medications Generic Name Dose Route Start Last Admin Trade Name Linda PRN Reason Stop Dose Admin Sodium Chloride 1,000 mls @ 125 mls/hr 04/28/17 10:30 04/28/17 11:00 Normal Saline IV 125 mls/hr ASDIRECTED FANNIE Administration Sodium Chloride 10 ml 04/28/17 10:20 04/28/17 11:00 Saline Flush FLUSH 10 ml ASDIRECTED PRN Administration Keep Vein Open - Re-Assessments/Exams Free Text/Narrative Re-Assessment/Exam: 04/28/17 13:44 I ordered an IV saline lock, EKG, CT of her head and labs. Her CT shows nothing acute. She does have a retention cyst in her sinus. Her EKG looks good and her troponin is negative. Her CBC and CMP look good. Her troponin is negative. She feels better. I had my nurse feed her and get her up. She did good. I will discharge her home. I feel this is vertigo. Departure - Departure Time of Disposition: 13:50 Disposition: Home, Self-Care 01 Condition: good Clinical Impression: Dizziness, Vertigo - Discharge Information Prescriptions: Meclizine [Antivert] 25 mg PO Q6H PRN #20 tablet PRN Reason: Dizziness Referrals: Daksha Quijano [Primary Care Provider] - 1 Week Forms: ED Department Discharge Additional Instructions: Drink plenty of fluids. Take the antivert as needed for dizziness. Take the rest of you medication as prescribed. Follow up with Dr Sandhu in 1 week. Please return if you are worse. - My Orders Last 24 Hours: My Active Orders 04/28/17 10:20 Cardiac Monitoring [RC] . DIRECTED EKG Documentation Completion [RC] STAT Oxygen Therapy [RC] PRN Peripheral IV Care [RC] . DIRECTED Sodium Chloride 0.9% [Saline Flush] 10 ml FLUSH ASDIRECTED PRN Peripheral IV Insertion Adult [OM.PC] Stat 04/28/17 10:21 Head wo Cont [CT] Stat 04/28/17 10:30 Sodium Chloride 0.9% [Normal Saline] 1,000 ml IV ASDIRECTED - Assessment/Plan Last 24 Hours: My Active Orders 04/28/17 10:20 Cardiac Monitoring [RC] . DIRECTED EKG Documentation Completion [RC] STAT Oxygen Therapy [RC] PRN Peripheral IV Care [RC] . DIRECTED Sodium Chloride 0.9% [Saline Flush] 10 ml FLUSH ASDIRECTED PRN Peripheral IV Insertion Adult [OM.PC] Stat 04/28/17 10:21 Head wo Cont [CT] Stat 04/28/17 10:30 Sodium Chloride 0.9% [Normal Saline] 1,000 ml IV ASDIRECTED
--- NOTE | 2017-05-01 10:01 | CT ---
Head CT Technique: Multiple axial sections through the brain were obtained. Intravenous contrast was not utilized. Comparison: Previous CT angiogram study of the brain dated 02/17/17. Findings: Ventricles along the basal cisterns and sulci over convexities are mildly to moderately prominent. Prominent cisterna magna seen as a normal variant. Very minimal diminished density is noted within portions of the periventricular white matter compatible with small vessel ischemic demyelination change. No other abnormal parenchymal densities are seen. No evidence of intracranial hemorrhage. No midline shift or mass effect is seen. Bone window settings shows a rounded soft tissue density within the sphenoid sinus which is felt compatible with a retention cyst measuring approximately 1.0 cm. No acute calvarial abnormality is seen. Impression: 1. Minimal sinus finding. Other incidental findings. Nothing acute is appreciated on noncontrast head CT study. Diagnostic code #2 MTDD
== END 2017-04-28 14:15 | disposition home or self-care (01) ==
LOC: JD.ED 10:15
DX: R42 Dizziness and giddiness (principal); I10 Essential (primary) hypertension; E78.00 Pure hypercholesterolemia, unspecified; K21.9 Gastro-esophageal reflux disease without esophagitis; E03.9 Hypothyroidism, unspecified; Z98.890 Other specified postprocedural states; Z85.828 Personal history of other malignant neoplasm of skin; Z87.891 Personal history of nicotine dependence; Z79.82 Long term (current) use of aspirin; Z79.899 Other long term (current) drug therapy; Z98.51 Tubal ligation status
CPT/HCPCS: 36415; 70450; 80053; 84484; 85025; 93005; 96360; 99285; J7040; J7050; 99284

== ENCOUNTER 2017-10-14 23:19 | Emergency (ER) | payer MEDICARE, OTHER ==
[2017-10-14 23:27] VITALS: BP 161/91
--- NOTE | 2017-10-15 00:28 | EDM.PDOC ---
ED HPI GENERAL MEDICAL PROBLEM - General Chief Complaint: ENT Problem Stated Complaint: NOSE BLEED Time Seen by Provider: 10/14/17 23:26 Source of Information: Reports: Patient, Family, RN Notes Reviewed History Limitations: Reports: No Limitations - History of Present Illness INITIAL COMMENTS - FREE TEXT/NARRATIVE: The patient states that she developed left epistaxis around 23:00 while in bed. She denies any nasal trauma. She does not recall if she has ever had epistaxis before. She is on aspirin 81 mg daily, but no other anticoagulants. The patient's PCP is Dr. Quijano. - Related Data Allergies Allergy/AdvReac Type Severity Reaction Status Date / Time No Known Allergies Allergy Verified 02/28/17 13:00 Home Meds: Home Meds Fluticasone/Salmeterol [Advair 250-50 Diskus] 1 each IH BID 01/05/17 [History] Levothyroxine 112 mcg PO DAILY 01/05/17 [History] Tiotropium [Spiriva HandiHaler] 18 mcg INH BID 01/05/17 [History] Aspirin [[place] Aspirin] 81 mg PO DAILY #0 04/02/17 [Rx] Esomeprazole Magnesium [Nexium] 40 mg PO ACBREAKFAST 10/14/17 [History] Rosuvastatin Calcium 20 mg PO DAILY 10/14/17 [History] Past Medical History Cardiovascular History: Reports: Aneurysm (AAA), High Cholesterol Respiratory History: Reports: COPD Gastrointestinal History: Reports: GERD 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) Endocrine/Metabolic History: Reports: Hypothyroidism Hematologic History: Reports: Blood Transfusion(s) Oncologic (Cancer) History: Reports: Squamous Cell Carcinoma - Past Surgical History HEENT Surgical History: Reports: Tonsillectomy Cardiovascular Surgical History: Reports: AAA Repair (2 endografts), Varicose GI Surgical History: Reports: Cholecystectomy, Hernia Repair/Other Female Surgical History: Reports: Tubal Ligation Social & Family History - Family History Family Medical History: Noncontributory - Tobacco Use Smoking Status *Q: Former Smoker Years of Tobacco use: 50 Packs/Tins Daily: 1.5 Month Tobacco Last Used: Quit 11/19/2016 - Caffeine Use Caffeine Use: Reports: Coffee - Alcohol Use Alcohol Use History: Yes Days Per Week of Alcohol Use: 7 Number of Drinks Per Day: 1 Total Drinks Per Week: 7 - Recreational Drug Use Recreational Drug Use: No - Living Situation & Occupation Living situation: Reports: , Alone Occupation: Retired ED ROS ENT - Review of Systems Review Of Systems: See Below Constitutional: Reports: No Symptoms HEENT: Reports: No Symptoms Respiratory: Reports: No Symptoms Cardiovascular: Reports: No Symptoms Endocrine: Reports: No Symptoms GI/Abdominal: Reports: No Symptoms : Reports: No Symptoms Musculoskeletal: Reports: No Symptoms Skin: Reports: No Symptoms Neurological: Reports: No Symptoms Psychiatric: Reports: No Symptoms Hematologic/Lymphatic: Reports: No Symptoms Immunologic: Reports: No Symptoms ED EXAM, ENT - Physical Exam Exam: See Below Exam Limited By: No Limitations General Appearance: Alert, WD/WN, No Apparent Distress Eye Exam: Bilateral Eye: Normal Inspection Ears: Normal External Exam, Normal Canal, Hearing Grossly Normal, Normal TMs Nose: Normal Inspection, Other (Blood in left nare, but no active bleeding seen. ) Mouth/Throat: Normal Inspection, Normal Gums, Normal Lips, Normal Oropharynx ( no blood in posterior oropharynx), Normal Teeth Head: Atraumatic, Normocephalic Neck: Normal Inspection, Supple, Non-Tender, Full Range of Motion. No: Lymphadenopathy (L), Lymphadenopathy (R) Course - Vital Signs Last Recorded V/S: Last Vital Signs Temp 36.6 C 10/14/17 23:23 Pulse 87 10/14/17 23:23 Resp 18 10/14/17 23:23 BP 161/91 H 10/14/17 23:23 Pulse Ox 95 10/14/17 23:23 - Re-Assessments/Exams Free Text/Narrative Re-Assessment/Exam: 10/15/17 00:24 Upon my initial inspection, the patient's nose was not bleeding. I had her sit upright for about 10 or 15 minutes, and reexamined her nose, and it is still not bleeding. No obvious vessel was visible. I will have the nurse apply a thin smear of some petroleum jelly to the bilateral septae, then discharge her home. Departure - Departure Time of Disposition: 00:26 Disposition: Home, Self-Care 01 Condition: Good Clinical Impression: Left-sided epistaxis - Discharge Information Instructions: Nosebleed, [id number] Forms: ED Department Discharge Additional Instructions: You were seen in the emergency room for a left sided nosebleed. On examination, your nose had already stopped bleeding, and did not restart while in the ER. We recommend you apply a thin smear of petroleum jelly to both sides of your nasal septum, to keep the mucous membranes moist. Consider also purchasing a home humidifier. If your nose bleeds again, sit upright, tilt your head slightly forward, and pinch your nostrils tightly for 10-15 minutes. If this does not stop your nosebleed, return to the ER for further evaluation and treatment.
== END 2017-10-15 00:31 | disposition home or self-care (01) ==
LOC: JD.ED 23:19
DX: R04.0 Epistaxis (principal); K21.9 Gastro-esophageal reflux disease without esophagitis; E03.9 Hypothyroidism, unspecified; Z79.899 Other long term (current) drug therapy; Z87.891 Personal history of nicotine dependence
CPT/HCPCS: 99282; 99283

== ENCOUNTER 2018-02-15 07:40 | Day surgery (SDC) | payer MEDICARE, OTHER ==
[~2018-02-15 07:40] MED LIST changes: -Dexamethasone 4 MG/ML 5 ML MDV ONE; -Lactated Ringers 1,000 ML IV SCH; -Lidocaine 1% 4 ML ONE; +Lidocaine 1% PF 2 ML SDV INJECT SCH; -Lidocaine 1%/Sod Bicarbonate in NS 8.4% 1 ML Syringe IV PRN; -Ondansetron 4 MG/2 ML SDV ONE; -Propofol 200 MG/20 ML SDV ONE; -Sodium Chloride 0.9% 10 ML Syringe FLUSH PRN; -fentaNYL 250 MCG/5 ML SDV ONE
[2018-02-15] MEDS: Polymyxin B/Trimethoprim 10 ML Bottle EYELF SCH ×4 (07:59→10:00)
[2018-02-15] MEDS: Brimonidine 0.2% Ophth Soln 5 ML Bottle EYELF SCH ×4 (08:06→10:00)
[2018-02-15] MEDS: Phenylephrine 2.5% Ophth Soln 2 ML Bot EYELF SCH ×5 (08:11→09:40)
--- NOTE | 2018-02-15 08:17 | PCM.PREANE ---
Preanesthetic Assessment - Procedure Proposed Procedure: Left eye cataract extraction with implant - Anesthesia/Transfusion/Family Hx Anesthesia History: Prior Anesthesia Without Reaction Family History of Anesthesia Reaction: No Transfusion History: No Prior Transfusion(s) Intubation History: Unknown - Review of Systems General: No Symptoms Pulmonary: Cough, Other (bronchitis on prednisone, copd ) Cardiovascular: No Symptoms Gastrointestinal: No Symptoms Neurological: Other (stroke history, no deficits ) Other: Reports: Thyroid Problems (hypothyroid ) - Physical Assessment NPO Status Date: 02/14/18 NPO Status Time: 23:45 O2 Sat by Pulse Oximetry: 94 Respiratory Rate: 16 Vital Signs: Last Vital Signs Temp 36.6 C 02/15/18 07:45 Pulse 75 02/15/18 07:45 Resp 16 02/15/18 07:45 BP 148/75 H 02/15/18 07:45 Pulse Ox 94 L 02/15/18 07:45 Height: 1.7 m Weight: 78.018 kg ASA Class: 2 Mental Status: Alert & Oriented x3 Airway Class: Mallampati = 2 Dentition: Reports: Dentures (uppers only, wants to keep out for procedure ) Thyro-Mental Finger Breadths: 3 Mouth Opening Finger Breadths: 5 ROM/Head Extension: Full Lungs: Clear to Auscultation, Normal Respiratory Effort Cardiovascular: Regular Rate, Regular Rhythm - Allergies Allergies/Adverse Reactions: Allergies Allergy/AdvReac Type Severity Reaction Status Date / Time No Known Allergies Allergy Verified 02/14/18 15:17 - Blood Blood Available: No - Anesthesia Plan Pre-Op Medication Ordered: None - Acknowledgements Anesthesia Type Planned: MAC Pt an Appropriate Candidate for the Planned Anesthesia: Yes Alternatives and Risks of Anesthesia Discussed w Pt/Guardian: Yes Pt/Guardian Understands and Agrees with Anesthesia Plan: Yes PreAnesthesia Questionnaire Cardiovascular History: Reports: Aneurysm (AAA), High Cholesterol Other Cardiovascular History: aaa Respiratory History: Reports: COPD Gastrointestinal History: Reports: GERD Other Gastrointestinal History: 04/01/17 diagnosed with cholelithiasis and gallstones. bladder has been lifted. 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) Endocrine/Metabolic History: Reports: Hypothyroidism Hematologic History: Reports: Blood Transfusion(s) Oncologic (Cancer) History: Reports: Squamous Cell Carcinoma Dermatologic History: Reports: Other (See Below) Other Dermatologic History: brown dry flaking skin to forearms that is thin - Past Surgical History HEENT Surgical History: Reports: Tonsillectomy Cardiovascular Surgical History: Reports: AAA Repair (2 endografts), Varicose GI Surgical History: Reports: Cholecystectomy, Hernia Repair/Other Female Surgical History: Reports: Tubal Ligation - SUBSTANCE USE Smoking Status *Q: Former Smoker Tobacco Use Within Last Twelve Months: No Second Hand Smoke Exposure: Yes Days Per Week of Alcohol Use: 7 Number of Drinks Per Day: 1 Total Drinks Per Week: 7 Recreational Drug Use History: No - HOME MEDS Home Medications: Home Meds Fluticasone/Salmeterol [Advair 250-50 Diskus] 1 each IH BID 01/05/17 [History] Levothyroxine 112 mcg PO DAILY 01/05/17 [History] Tiotropium [Spiriva HandiHaler] 18 mcg INH BID 01/05/17 [History] Esomeprazole Magnesium [Nexium] 40 mg PO ACBREAKFAST 10/14/17 [History] Rosuvastatin Calcium 20 mg PO DAILY 10/14/17 [History] Acetaminophen [Tylenol] 650 mg PO Q4H PRN 02/14/18 [History] Albuterol [Proair HFA] 1 - 2 puff INH Q4H PRN 02/14/18 [History] Cetirizine [ZyrTEC] 10 mg PO ASDIRECTED 02/14/18 [History] Cholecalciferol (Vitamin D3) [Vitamin D3] 1,000 unit PO DAILY 02/14/18 [History] Docusate Sodium [Colace] 100 mg PO ASDIRECTED 02/14/18 [History] Fluticasone Propionate [Flonase] 1 spray NASBOTH ASDIRECTED 02/14/18 [History] Multivitamin [Poly-Vitamin] 1 tab PO DAILY 02/14/18 [History] Omeprazole 20 mg PO DAILY 02/14/18 [History] Propylene Glycol/PEG 400/Pf [Systane 0.3-0.4% Eye Drops] 1 drop EYEBOTH ASDIRECTED 02/14/18 [History] - CURRENT (IN HOUSE) MEDS Current Meds: Current Medications Brimonidine Tartrate (Alphagan 0.2% Ophth Soln) 0 ml EYELF ASDIRECTED FANNIE Stop: 02/15/18 18:00 Last Admin: 02/15/18 08:06 Dose: 1 drop Cefuroxime Sodium (Zinacef) 0 mg EYELF ASDIRECTED FANNIE Stop: 02/15/18 18:00 Lidocaine HCl (Xylocaine-Mpf 1%) 10 ml INJECT ASDIRECTED FANNIE Stop: 02/15/18 18:00 Phenylephrine HCl (Toni-Synephrine 2.5% Ophth Soln) 0 ml EYELF ASDIRECTED FANNIE Stop: 02/15/18 18:00 Pilocarpine HCl (Pilocar 4% Ophth Soln) 0 ml EYELF ASDIRECTED FANNIE Stop: 02/15/18 18:00 Polymyxin/Trimethoprim Sulfate (Polytrim Ophth Soln) 0 ml EYELF ASDIRECTED FANNIE Stop: 02/15/18 18:00 Last Admin: 02/15/18 07:59 Dose: 1 drop Tetracaine HCl (Tetracaine 0.5% Steri-Unit Ivania) 0 ml EYELF ASDIRECTED FANNIE Stop: 02/15/18 18:00 Tropicamide (Mydriacyl 1% Ophth Soln) 0 ml EYELF ASDIRECTED FANNIE Stop: 02/15/18 18:00
[2018-02-15] MEDS: Tetracaine HCl/PF 0.5% 4 ML Bottle EYELF SCH ×2 (09:30→09:48)
[2018-02-15] MEDS: Pilocarpine 4% Ophth Soln 15 ML Bot EYELF SCH ×2 (09:51→10:00)
[2018-02-15] MEDS: Cefuroxime 10 MG/ML SYRINGE EYELF SCH ×2 (09:51→09:59)
--- NOTE | 2018-02-15 10:07 | PCM48HPAN ---
Post Anesthesia Note - EVALUATION WITHIN 48HRS OF ANESTHETIC Vital Signs in Normal Range: Yes Patient Participated in Evaluation: Yes Respiratory Function Stable: Yes Airway Patent: Yes Cardiovascular Function Stable: Yes Hydration Status Stable: Yes Pain Control Satisfactory: Yes Nausea and Vomiting Control Satisfactory: Yes Mental Status Recovered: Yes Pulse Rate: 67 SaO2: 95 Resp Rate: 16 Temperature: 36.2 C Blood Pressure: 160/80
[2018-02-15 10:27] VITALS: BP 153/77
== END 2018-02-15 10:15 | disposition home or self-care (01) ==
LOC: JD.SDS 07:40
PROVIDERS: ATTEND Ophthalmology
DX: H26.9 Unspecified cataract (principal); J44.9 Chronic obstructive pulmonary disease, unspecified; E78.00 Pure hypercholesterolemia, unspecified; Z87.891 Personal history of nicotine dependence; Z79.82 Long term (current) use of aspirin; Z79.899 Other long term (current) drug therapy
CPT/HCPCS: 66984; J0697; A9270-GY

== ENCOUNTER 2018-03-15 07:52 | Day surgery (SDC) | payer MEDICARE, OTHER ==
[~2018-03-15 07:52] MED LIST changes: +Cefuroxime 10 MG/ML SYRINGE EYERT SCH; +Pilocarpine 4% Ophth Soln 15 ML Bot EYERT SCH
[2018-03-15] MEDS: Polymyxin B/Trimethoprim 10 ML Bottle EYERT SCH ×3 (08:19→10:19)
[2018-03-15] MEDS: Brimonidine 0.2% Ophth Soln 5 ML Bottle EYERT SCH ×3 (08:25→10:19)
[2018-03-15] MEDS: Phenylephrine 2.5% Ophth Soln 2 ML Bot EYERT SCH ×5 (08:30→10:00)
--- NOTE | 2018-03-15 08:57 | PCM.PREANE ---
Preanesthetic Assessment - Anesthesia/Transfusion/Family Hx Anesthesia History: Prior Anesthesia Without Reaction Family History of Anesthesia Reaction: No Transfusion History: No Prior Transfusion(s) Intubation History: Unknown - Review of Systems General: No Symptoms Pulmonary: Shortness of Breath, Other (COPD with chronic cough, used inhalers this am) Cardiovascular: Other (high cholesterol) Gastrointestinal: No Symptoms Neurological: Other (hx of stroke) - Physical Assessment NPO Status Date: 03/14/18 NPO Status Time: 22:30 Pulse: 73 O2 Sat by Pulse Oximetry: 94 Respiratory Rate: 20 Blood Pressure: 121/64 Temperature: 36.8 C Vital Signs: Last Vital Signs Temp 36.8 C 03/15/18 08:00 Pulse 73 03/15/18 08:00 Resp 20 03/15/18 08:00 BP 121/64 03/15/18 08:00 Pulse Ox 94 L 03/15/18 08:00 Height: 1.7 m Weight: 78.018 kg ASA Class: 2 Mental Status: Alert & Oriented x3 Airway Class: Mallampati = 2 Dentition: Reports: Normal Dentition Thyro-Mental Finger Breadths: 3 Mouth Opening Finger Breadths: 3 ROM/Head Extension: Full Lungs: Clear to Auscultation, Normal Respiratory Effort Cardiovascular: Regular Rate, Regular Rhythm - Allergies Allergies/Adverse Reactions: Allergies Allergy/AdvReac Type Severity Reaction Status Date / Time No Known Allergies Allergy Verified 03/14/18 11:42 - Blood Blood Available: No Product(s) Available: None - Anesthesia Plan Pre-Op Medication Ordered: None - Acknowledgements Anesthesia Type Planned: MAC Pt an Appropriate Candidate for the Planned Anesthesia: Yes Alternatives and Risks of Anesthesia Discussed w Pt/Guardian: Yes Pt/Guardian Understands and Agrees with Anesthesia Plan: Yes PreAnesthesia Questionnaire Cardiovascular History: Reports: Aneurysm (AAA), High Cholesterol Other Cardiovascular History: aaa Respiratory History: Reports: COPD Gastrointestinal History: Reports: GERD Other Gastrointestinal History: 04/01/17 diagnosed with cholelithiasis and gallstones. bladder has been lifted. 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) Endocrine/Metabolic History: Reports: Hypothyroidism Hematologic History: Reports: Blood Transfusion(s) Oncologic (Cancer) History: Reports: Squamous Cell Carcinoma Dermatologic History: Reports: Other (See Below) Other Dermatologic History: brown dry flaking skin to forearms that is thin - Past Surgical History HEENT Surgical History: Reports: Tonsillectomy Cardiovascular Surgical History: Reports: AAA Repair (2 endografts), Varicose GI Surgical History: Reports: Cholecystectomy, Hernia Repair/Other Female Surgical History: Reports: Tubal Ligation - SUBSTANCE USE Smoking Status *Q: Former Smoker Tobacco Use Within Last Twelve Months: No Second Hand Smoke Exposure: Yes Days Per Week of Alcohol Use: 7 Number of Drinks Per Day: 1 Total Drinks Per Week: 7 Recreational Drug Use History: No - HOME MEDS Home Medications: Home Meds Fluticasone/Salmeterol [Advair 250-50 Diskus] 1 each IH BID 01/05/17 [History] Levothyroxine 112 mcg PO DAILY 01/05/17 [History] Tiotropium [Spiriva HandiHaler] 1 puff INH DAILY 01/05/17 [History] Esomeprazole Magnesium [Nexium] 40 mg PO ACBREAKFAST 10/14/17 [History] Acetaminophen [Tylenol] 650 mg PO Q4H PRN 02/14/18 [History] Albuterol [Proair HFA] 1 - 2 puff INH Q4H PRN 02/14/18 [History] Cholecalciferol (Vitamin D3) [Vitamin D3] 400 unit PO DAILY 02/14/18 [History] Docusate Sodium [Colace] 100 mg PO ASDIRECTED 02/14/18 [History] Fluticasone Propionate [Flonase] 1 spray NASBOTH ASDIRECTED 02/14/18 [History] Multivitamin [Poly-Vitamin] 1 tab PO DAILY 02/14/18 [History] Omeprazole 20 mg PO BID 02/14/18 [History] Aspirin [[place] Aspirin] 81 mg PO DAILY 02/20/18 [History] Pravastatin Sodium [Pravastatin (Pravachol)] 40 mg PO DAILY 02/20/18 [History] - CURRENT (IN HOUSE) MEDS Current Meds: Current Medications Brimonidine Tartrate (Alphagan 0.2% Ophth Soln) 0 ml EYERT ASDIRECTED FANNIE Stop: 03/15/18 18:00 Last Admin: 03/15/18 08:25 Dose: 1 drop Cefuroxime Sodium (Zinacef) 0 mg EYERT ASDIRECTED FANNIE Stop: 03/15/18 18:00 Lidocaine HCl (Xylocaine-Mpf 1%) 10 ml INJECT ASDIRECTED FANNIE Stop: 03/15/18 18:00 Phenylephrine HCl (Toni-Synephrine 2.5% Oph Soln) 0 ml EYERT ASDIRECTED FANNIE Stop: 03/15/18 18:00 Last Admin: 03/15/18 08:43 Dose: 1 drop Pilocarpine HCl (Pilocar 4% Oph Soln) 0 ml EYERT ASDIRECTED FANNIE Stop: 03/15/18 18:00 Polymyxin/Trimethoprim Sulfate (Polytrim Oph Soln) 0 ml EYERT ASDIRECTED FANNIE Stop: 03/15/18 18:00 Last Admin: 03/15/18 08:19 Dose: 1 drop Tetracaine HCl (Tetracaine 0.5% Steri-Unit Ivania) 0 ml EYERT ASDIRECTED FANNIE Stop: 03/15/18 18:00 Tropicamide (Mydriacyl 1% Oph Soln) 0 ml EYERT ASDIRECTED FANNIE Stop: 03/15/18 18:00 Last Admin: 03/15/18 08:50 Dose: 1 drop
[2018-03-15] MEDS: Tetracaine HCl/PF 0.5% 4 ML Bottle EYERT SCH ×2 (09:50→10:07)
--- NOTE | 2018-03-15 10:24 | PCM48HPAN ---
Post Anesthesia Note - EVALUATION WITHIN 48HRS OF ANESTHETIC Vital Signs in Normal Range: Yes Patient Participated in Evaluation: Yes Respiratory Function Stable: Yes Airway Patent: Yes Cardiovascular Function Stable: Yes Hydration Status Stable: Yes Pain Control Satisfactory: Yes Nausea and Vomiting Control Satisfactory: Yes Mental Status Recovered: Yes Pulse Rate: 73 SaO2: 97 Resp Rate: 16 Temperature: 36.8 C Blood Pressure: 118/64
[2018-03-15 10:34] VITALS: BP 136/69
== END 2018-03-15 10:28 | disposition home or self-care (01) ==
LOC: JD.SDS 07:52
PROVIDERS: ATTEND Ophthalmology
DX: H26.9 Unspecified cataract (principal); J44.9 Chronic obstructive pulmonary disease, unspecified; E78.00 Pure hypercholesterolemia, unspecified; Z87.891 Personal history of nicotine dependence; Z79.82 Long term (current) use of aspirin; Z79.899 Other long term (current) drug therapy
CPT/HCPCS: 66984; C1780; J0697; A9270-GY

== ENCOUNTER 2019-03-01 10:28 | Emergency (ER) | payer MEDICARE, OTHER ==
[2019-03-01 10:45] VITALS: BP 120/86
[2019-03-01] MEDS ORDERED: Albuterol 0.083% 2.5 MG/3 ML Neb Soln NEB ONE (11:05)
--- NOTE | 2019-03-01 11:40 | EDM.PDOC ---
ED HPI GENERAL MEDICAL PROBLEM - General Chief Complaint: Respiratory Problem Stated Complaint: SOB Time Seen by Provider: 03/01/19 10:52 Source of Information: Reports: Patient, Family, RN Notes Reviewed History Limitations: Reports: No Limitations - History of Present Illness INITIAL COMMENTS - FREE TEXT/NARRATIVE: Patient is a 79-year-old female who presents to the ED for the evaluation of increased shortness of breath. She states that this did start 2 days ago, she feels as if she can't get enough air in. She states that she had increased cough with clear mucus production, increased shortness of breath with exertion, she further notes some mild chest discomfort but figures this is from increased cough. She does note a history of COPD and does have a compounding scaler, Dr. Vazquez in [facility]. She states that she takes albuterol inhaler , Spiriva, Advair 250/50 on a regular basis, she also states that Dr. Vazquez has also given her a prophylactic prescription of azithromycin for which she takes 3 times a week. She further denies any fever/chills, nausea/vomiting/ diarrhea at this time. She is not on any blood pressure medications but does take an aspirin, and a statin for heart health. Chest Pain Score (Numeric/FACES): 6 - Related Data Allergies Allergy/AdvReac Type Severity Reaction Status Date / Time No Known Allergies Allergy Verified 03/01/19 10:45 Home Meds: Home Meds Fluticasone/Salmeterol [Advair 250-50 Diskus] 1 each IH BID 01/05/17 [History] Levothyroxine 112 mcg PO DAILY 01/05/17 [History] Tiotropium [Spiriva HandiHaler] 1 puff INH DAILY 01/05/17 [History] Esomeprazole Magnesium [Nexium] 40 mg PO ACBREAKFAST 10/14/17 [History] Acetaminophen [Tylenol] 650 mg PO Q4H PRN 02/14/18 [History] Albuterol [Proair HFA] 1 - 2 puff INH Q4H PRN 02/14/18 [History] Cholecalciferol (Vitamin D3) [Vitamin D3] 400 unit PO DAILY 02/14/18 [History] Docusate Sodium [Colace] 100 mg PO ASDIRECTED 02/14/18 [History] Fluticasone Propionate [Flonase] 1 spray NASBOTH ASDIRECTED 02/14/18 [History] Multivitamin [Poly-Vitamin] 1 tab PO DAILY 02/14/18 [History] Omeprazole 20 mg PO BID 02/14/18 [History] Aspirin [Stuart Aspirin] 81 mg PO DAILY 02/20/18 [History] Pravastatin Sodium [Pravastatin (Pravachol)] 40 mg PO DAILY 02/20/18 [History] Albuterol Sulfate 2.5 mg IH QID PRN #1 box 03/01/19 [Rx] predniSONE [Deltasone] 20 mg PO ASDIRECTED #15 tablet 03/01/19 [Rx] Past Medical History Cardiovascular History: Reports: Aneurysm (AAA), High Cholesterol Other Cardiovascular History: aaa Respiratory History: Reports: COPD Gastrointestinal History: Reports: GERD Other Gastrointestinal History: 04/01/17 diagnosed with cholelithiasis and gallstones. bladder has been lifted. 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) Endocrine/Metabolic History: Reports: Hypothyroidism Hematologic History: Reports: Blood Transfusion(s) Oncologic (Cancer) History: Reports: Squamous Cell Carcinoma Dermatologic History: Reports: Other (See Below) Other Dermatologic History: brown dry flaking skin to forearms that is thin - Past Surgical History HEENT Surgical History: Reports: Tonsillectomy Cardiovascular Surgical History: Reports: AAA Repair (2 endografts), Varicose GI Surgical History: Reports: Cholecystectomy, Hernia Repair/Other Female Surgical History: Reports: Tubal Ligation Social & Family History - Family History Family Medical History: Noncontributory - Tobacco Use Smoking Status *Q: Former Smoker - Caffeine Use Caffeine Use: Reports: Coffee - Living Situation & Occupation Living situation: Reports: , Alone Occupation: Retired ED ROS GENERAL - Review of Systems Review Of Systems: See Below Constitutional: Denies: Fever, Chills, Malaise HEENT: Reports: Rhinitis Respiratory: Reports: Shortness of Breath, Cough. Denies: Wheezing Cardiovascular: Reports: Chest Pain (mild chest wall discomfort), Dyspnea on Exertion. Denies: Orthopnea Endocrine: Reports: No Symptoms GI/Abdominal: Reports: Vomiting. Denies: Abdominal Pain, Constipation, Diarrhea , Nausea : Reports: No Symptoms Musculoskeletal: Reports: No Symptoms Skin: Reports: No Symptoms Neurological: Reports: No Symptoms Psychiatric: Reports: No Symptoms Hematologic/Lymphatic: Reports: No Symptoms Immunologic: Reports: No Symptoms ED EXAM, GENERAL - Physical Exam Exam: See Below Exam Limited By: No Limitations General Appearance: Alert, WD/WN, No Apparent Distress Eye Exam: Bilateral Eye: EOMI, Normal Inspection, PERRL Ears: Normal External Exam Nose: Normal Inspection, Normal Mucosa Throat/Mouth: Normal Inspection, Normal Oropharynx, No Airway Compromise Head: Atraumatic, Normocephalic Neck: Normal Inspection Respiratory/Chest: No Respiratory Distress, Lungs Clear, Decreased Breath Sounds (bilaterally over all lung [place]ulk[place]), Prolonged Expiration. No: Rhonchi, Wheezing, Accessory Muscle Use Cardiovascular: Normal Peripheral Pulses, Regular Rate, Rhythm, No Murmur GI/Abdominal: Normal Bowel Sounds, Soft, Non-Tender, No Distention Extremities: Normal Inspection, Normal Capillary Refill Neurological: Alert, Oriented, Normal Cognition, No Motor/Sensory Deficits Psychiatric: Normal Affect, Normal Mood Skin Exam: Warm, Dry, Intact, Normal Color, No Rash EKG INTERPRETATION EKG Date: 03/01/19 Time: 11:43 Rhythm: NSR Rate (Beats/Min): 75 [place]: Normal P-Wave: Present QRS: Normal ST-T: Normal QT: Normal Comparison: NA - No Prior EKG EKG Interpretation Comments: probable left atrial enlargement Course - Vital Signs Last Recorded V/S: Last Vital Signs Temp 98.7 F 03/01/19 10:42 Pulse 91 03/01/19 10:42 Resp 16 03/01/19 10:42 BP 120/86 03/01/19 10:42 Pulse Ox 97 03/01/19 12:13 - Orders/Labs/Meds Orders: Active Orders 24 hr Category Date Time Status EKG Documentation Completion [RC] STAT Care 03/01/19 11:04 Active RT Aerosol Therapy [RC] ASDIRECTED Care 03/01/19 11:06 Active Labs: Laboratory Tests 03/01/19 03/01/19 03/01/19 Range/Units 11:25 11:25 11:25 WBC 8.68 (3.98-10.04) K/mm3 RBC 4.57 (3.98-5.22) M/mm3 Hgb 15.2 (11.2-15.7) gm/L Hct 46.6 H (34.1-44.9) % MCV 102.0 H (79.4-94.8) fl MCH 33.3 H (25.6-32.2) pg MCHC 32.6 (32.2-35.5) g/dl RDW Std Deviation 51.1 H (36.4-46.3) fL Plt Count 243 (182-369) K/mm3 MPV 9.5 (9.4-12.3) fl Neutrophils % (Manual) 70 H (40-60) % Band Neutrophils % 0 (0-10) % Lymphocytes % (Manual) 22 (20-40) % Atypical Lymphs % 0 % Monocytes % (Manual) 4 (2-10) % Eosinophils % (Manual) 4 (0.7-5.8) % Basophils % (Manual) 0 L (0.1-1.2) Platelet Estimate Adequate RBC Morph Comment Normal Sodium 139 (136-145) mEq/L Potassium 4.8 (3.5-5.1) mEq/L Chloride 102 (98-107) mEq/L Carbon Dioxide 30 (21-32) mEq/L Anion Gap 11.8 (5-15) BUN 8 (7-18) mg/dL Creatinine 0.8 (0.55-1.02) mg/dL Est Cr Clr Drug Dosing 55.45 mL/min Estimated GFR (MDRD) > 60 (>60) mL/min BUN/Creatinine Ratio 10.0 L (14-18) Glucose 108 (83-115) mg/dL Calcium 9.9 (8.5-10.1) mg/dL Total Bilirubin 0.3 (0.2-1.0) mg/dL AST 23 (15-37) U/L ALT 26 (14-59) U/L Alkaline Phosphatase 81 (46-116) U/L Troponin I < 0.017 (0.00-0.056) ng/mL NT-Pro-B Natriuret Pep 210 (0-450) pg/mL Total Protein 6.9 (6.4-8.2) g/dl Albumin 2.7 L (3.4-5.0) g/dl Globulin 4.2 gm/dL Albumin/Globulin Ratio 0.6 L (1-2) Meds: Medications Discontinued Medications Generic Name Dose Route Start Last Admin Trade Name Linda PRN Reason Stop Dose Admin Albuterol 2.5 mg 03/01/19 11:05 03/01/19 11:18 Proventil Neb Soln NEB 03/01/19 11:06 2.5 mg ONETIME ONE Administration Methylprednisolone Sodium Succinate 125 mg 03/01/19 11:49 03/01/19 11:55 Solu-Medrol IVPUSH 03/01/19 11:50 125 mg ONETIME ONE Administration - Re-Assessments/Exams Free Text/Narrative Re-Assessment/Exam: 03/01/19 11:43 Patient presents to the ED for the evaluation of increased shortness of breath. I have ordered a CBC, CMP, troponin, BNP, EKG, 2 view chest x-ray, and an albuterol neb for initial management and treatment. 03/01/19 12:00 Patient's Spo2 did dip into the mid 80s after the nebulizer, I did put her on oxygen and order 125mg of IV solu-medrol. 03/01/19 12:27 Patient was reassessed at bedside and she states she feels better, she is worried that she still will have some shortness of breath with ambulation. I we will have the nurse get her up and walk her with out, and with oxygen to see how she does. Her chest x-ray has returned and is only impressive for emphysematous changes but no acute abnormalities are seen. 03/01/19 13:21 [facility] was called for the possibility of sending this patient home with home oxygen, base said that she would qualify for home oxygen however since this is an ER visit there is no chronicity established and that insurance would not provide much. For this I will provide this information to the patient and try to give her some informed decision making on how to go from here. I will recommend that she obtain the oxygen for home use and then be seen by primary care early next week to establish chronicity so that her insurance will pay for this. 03/01/19 13:51 Patient's room air O2 sat was 84%, this was after resting comfortably for more than 5 minutes. The patient was given her options for home oxygen and she states that she will go to [facility] on her way home and obtain oxygen from them. [facility] was called with this and they are fine with this plan. Prescription for albuterol and prednisone will be sent to [place] pharmacy located in the [place]. Departure - Departure Time of Disposition: 14:11 Disposition: Home, Self-Care 01 Condition: Fair Clinical Impression: COPD exacerbation - Discharge Information *PRESCRIPTION DRUG MONITORING PROGRAM REVIEWED*: No *COPY OF PRESCRIPTION DRUG MONITORING REPORT IN PATIENT MICHAEL: No Prescriptions: Albuterol Sulfate 2.5 mg IH QID PRN #1 box PRN Reason: Cough predniSONE [Deltasone] 20 mg PO ASDIRECTED #15 tablet Instructions: Chronic Obstructive Pulmonary Disease Exacerbation, [id number] , Home Oxygen Use, Adult Referrals: Sonia Arteaga PA [Primary Care Provider] - Forms: ED Department Discharge Additional Instructions: You have been evaluated in the ED today for increasing shortness of breath. Your labs, chest x-ray, EKG were all within normal limits at this visit. Your room air oxygen level however was low without activity, 84-87% on room air. This does qualify for home oxygen at rest, you can obtain this at [facility] located at [address] [address]. They are aware that you need home oxygen, they did state however since this is an ER visit and not a clinic visit that you will likely have to pay out of pocket for this to start with. Please set up an appointment with Sonia Arteaga in clinic early next week for further oxygen needs. You have been provided with a prescription for albuterol nebulizers and prednisone please take this as directed. This was electronically sent to the [place] pharmacy located in the [place]. He is return to the ED if your symptoms change or worsen. - My Orders Last 24 Hours: My Active Orders 03/01/19 11:04 EKG Documentation Completion [RC] STAT 03/01/19 11:06 RT Aerosol Therapy [RC] ASDIRECTED - Assessment/Plan Last 24 Hours: My Active Orders 03/01/19 11:04 EKG Documentation Completion [RC] STAT 03/01/19 11:06 RT Aerosol Therapy [RC] ASDIRECTED
[2019-03-01] MEDS ORDERED: methylPREDNISolone Sodium Succinate 125 MG/2 ML SDV IVPUSH ONE (11:49)
--- NOTE | 2019-03-01 12:12 | CR ---
Chest: Two views of the chest were obtained. Comparison: Prior chest x-ray of 05/22/18. Heart size and mediastinum are within normal limits. Lungs are hyperinflated compatible with emphysematous change. No acute parenchymal change is seen. Bony structures appear within normal limits for the patient's age. Impression: 1. Emphysematous change. Nothing acute is seen. Diagnostic code #2
== END 2019-03-01 14:50 | disposition home or self-care (01) ==
LOC: JD.ED 10:28
DX: J44.1 Chronic obstructive pulmonary disease with (acute) exacerbation (principal); E78.00 Pure hypercholesterolemia, unspecified; K21.9 Gastro-esophageal reflux disease without esophagitis; E03.9 Hypothyroidism, unspecified; Z86.73 Personal history of transient ischemic attack (TIA), and cerebral infarction without residual deficits; Z79.899 Other long term (current) drug therapy
CPT/HCPCS: 36415; 71046; 80053; 83880; 84484; 85007; 85027; 93005; 94640; 96374; 99285; J2930